=== PATIENT | female | born 1950 ===

== ENCOUNTER → 2020-04-28 14:04 | Outpatient (BNVA) | payer MEDICARE, SELFPAY | PROVIDERS: PCP Nurse Practitioner Family; Visit Provider Anesthesiology | DX: Z76.89 Persons encountering health services in other specified circumstances (principal) ==

== ENCOUNTER → 2020-09-22 14:45 | Outpatient (BNVA) | payer MEDICARE, SELFPAY | PROVIDERS: PCP General Practice; Visit Provider Nurse Practitioner Family | DX: M54.12 Radiculopathy, cervical region (principal); M79.18 Myalgia, other site; G89.4 Chronic pain syndrome; G90.523 Complex regional pain syndrome I of lower limb, bilateral; Z79.899 Other long term (current) drug therapy | CPT/HCPCS: 99212 ==

== ENCOUNTER → 2020-10-08 11:28 | Outpatient (BNVA) | payer MEDICARE, SELFPAY | PROVIDERS: PCP General Practice; Visit Provider Nurse Practitioner Family | DX: M54.12 Radiculopathy, cervical region (principal); M79.18 Myalgia, other site; G89.4 Chronic pain syndrome; G90.523 Complex regional pain syndrome I of lower limb, bilateral | CPT/HCPCS: 99212 ==

== ENCOUNTER 2020-10-08 14:01 | Emergency (ER) | payer MEDICARE, SELFPAY ==
[2020-10-08 14:29] VITALS: BP 231/96; PULSE 61; RESP 18; O2SAT 98; BMI 41.0
--- NOTE | 2020-10-08 16:21 | ED.GENADULT ---
HPI - General Adult General Chief complaint: General Medical Stated complaint: hbp Time Seen by Provider: 10/08/20 16:21 Source: patient Mode of arrival: ambulatory Limitations: no limitations History of Present Illness HPI narrative: Patient sent from orthopedic clinic for high blood pressure of 238/98 patient is on multiple medication for blood pressure lisinopril labetalol and nifedipine staying with her son for last 2 days and did not take her medication went to Pain Clinic and blood pressure was elevated patient otherwise asymptomatic no headache no chest pain no shortness of breath patient is feeling okay otherwise and patient will be getting her medication tonight Related Data Home Medications Medication Instructions Recorded Confirmed albuterol sulfate 90 mcg/actuation 2 puff INHALATION Q4H PRN 09/22/20 10/08/20 aerosol inhaler atorvastatin 20 mg tablet 20 mg PO DAILY 09/22/20 10/08/20 chlorthalidone 25 mg tablet 25 mg PO DAILY 09/22/20 10/08/20 cholecalciferol (vitamin D3) 50 50 mcg PO QAM 09/22/20 10/08/20 mcg (2,000 unit) tablet divalproex 250 mg tablet,extended 0 mg PO 09/22/20 10/08/20 release 24 hr fluticasone 250 mcg-salmeterol 50 1 ea INHALATION BID 09/22/20 10/08/20 mcg/dose blistr powdr for inhalation labetalol 200 mg tablet 200 mg PO BID 09/22/20 10/08/20 levothyroxine 125 mcg tablet 125 mcg PO DAILY 09/22/20 10/08/20 lisinopril 40 mg tablet 40 mg PO BEDTIME 09/22/20 10/08/20 montelukast 10 mg tablet 10 mg PO BEDTIME 09/22/20 10/08/20 nifedipine 90 mg tablet,extended 90 mg PO DAILY 09/22/20 10/08/20 release 24 hr oxycodone-acetaminophen 5 mg-325 1 tab PO TID PRN 09/22/20 10/08/20 mg tablet pregabalin 100 mg capsule 100 mg PO BID 09/22/20 10/08/20 Allergies Allergy/AdvReac Type Severity Reaction Status Date / Time aspirin [ASPIRIN] Allergy Intermediate HIVES Verified 10/08/20 11:37 Penicillins [PENICILLINS] Allergy Intermediate HIVES Verified 10/08/20 11:37 SEAFOOD Allergy Severe HIVES, Uncoded 03/18/20 15:15 THROAT CLOSES Review of Systems Review of Systems: Constitutional : No Weight loss, No Fever, No Chills ENT/Mouth : No sore throat, No Rhinorrhea Eyes: No Eye Pain, No Swelling Cardiovascular : No Chest Pain, no palpitations Respiratory : No Cough, No Sputum, no shortness of breath Gastrointestinal : no Nausea, No Vomiting, No Diarrhea, No abdominal Pain, no black stools Genitourinary : No Dysuria, No Urinary Frequency Musculoskeletal : No joint pain, No Myalgias, No Joint Swelling Skin : No Skin Lesions, No rash Neuro : No Weakness, No Numbness, No Dizziness, No Headache Psych : No Anxiety/Panic, No Depression Heme/Lymph: No Bruising, No Lymphadenopathy Endocrine : No Polyuria, No Polydipsia All other systems reviewed and are negative [facility] Past Medical History Medical History (Updated 10/08/20 @ 17:39 by Artur Myrick MD) Chronic pain syndrome Complex regional pain syndrome i of lower limb, bilateral Hypertension Neuropathic pain Sacroiliitis Social History Social History Alcohol intake: never Smoking Status: Never smoker Use of substances other than those prescribed or required for medical reasons: No Advance Directives: No Advance Directives Information Provided: Yes Physical Exam Vital Signs: Vital Signs: Last Vital Signs Temp 98.2 F 10/08/20 17:06 Pulse 55 10/08/20 17:32 Resp 12 10/08/20 17:32 BP 167/79 H 10/08/20 17:32 Pulse Ox 96 10/08/20 17:32 Body Mass Index 41.0 Appearance: Alert. Oriented X3. No acute distress. Eyes: Pupils equal, round and reactive to light. ENT: Pharynx normal. Neck: Normal inspection. Neck supple. CVS: Normal heart rate and rhythm. Pulses normal. Respiratory: No respiratory distress. Breath sounds normal. Abdomen: Soft and nontender. Bowel sounds are present, no mass palpable, no CVA tenderness Skin: Skin warm and dry. Normal skin color. Normal skin turgor. Extremities: No lower extremity edema. Neuro: Oriented X 3. No motor deficit. No sensory deficit. Medical Decision Making MDM Narrative Medical decision making narrative: Patient with hypertension missed her medication, blood pressure was elevated at pain clinic at this time 211/94 patient is symptomatic will give her evening dose of lisinopril and labetalol advised to follow up with PCP and continue to take her medications. Repeat blood pressure at time of discharge were 167/79 Lab Data Lab results reviewed: Yes I reviewed the patient's lab results. Result diagrams: 10/08/20 16:20 10/08/20 16:20 Labs: Lab Results 10/08/20 10/08/20 10/08/20 Range/Units 16:20 16:20 16:20 WBC 6.0 (4.8-10.8) X10*3/uL RBC 4.04 L (4.20-5.50) X10*6/uL Hgb 11.2 L (12.0-16.0) g/dl Hct 35.5 L (37-47) % MCV 87.9 (80-98) fL MCH 27.7 (27.0-33.0) pg MCHC 31.5 (31.0-35.0) g/dl RDW 13.1 (11.0-16.0) % Plt Count 244 (160-400) X10*3/uL MPV 9.9 (9.4-12.3) fL Immature Gran % (Auto) 0.2 (0.0-0.4) % Neut % (Auto) 48.8 (45-73) % Lymph % (Auto) 42.7 H (20-40) % [place] % (Auto) 6.1 (2-11) % Eos % (Auto) 2.0 (0-4) % Baso % (Auto) 0.2 (0-2) % Lymph # (Auto) 2.6 (1.2-4.9) X10*3/uL [place] # (Auto) 0.4 (0.1-1.2) X10*3/uL Eos # (Auto) 0.1 (0.0-0.4) X10*3/uL Baso # (Auto) 0.0 (0.0-0.2) X10*3/uL Abs Immat Gran (auto) 0.01 (0.00-0.03) X10*3/uL Absolute Neuts (auto) 3.0 (2.0-8.3) X10*3/uL Absolute Nucleated RBC 0.000 (0.0-0.012) X10*3/uL Nucleated RBC % (auto) 0.0 (0.0-0.2) /100WBC Hold Blue Top SEE NOTE Sodium 141 (135-145) mmol/L Potassium 4.4 (3.3-5.1) mmol/L Chloride 103 (96-108) mmol/L Carbon Dioxide 27 (22-29) mmol/L Anion Gap 15 (12-20) BUN 11 (9-16) mg/dL Creatinine 1.05 (0.5-1.4) mg/dL Estim Creat Clear Calc 50.1 Estimated GFR 52 Random Glucose 99 (60-115) mg/dL Calcium 8.8 (8.4-10.2) mg/dL Discharge Plan Discharge Clinical Impression: Hypertension Qualifiers: Hypertension type: essential hypertension Qualified Code(s): I10 - Essential (primary) hypertension Patient Disposition: Home, Self-Care Instructions: Chronic Hypertension (ED) Additional Instructions: Taking medication on time and check blood pressure and follow with PCP Normal blood pressure should be less than 140/90 Prescriptions: No Action pregabalin 100 mg capsule 100 mg PO BID RF: 0 divalproex 250 mg tablet extended release 24 hr 0 mg PO RF: 0 levothyroxine 125 mcg tablet 125 mcg PO DAILY RF: 0 nifedipine 90 mg tablet extended release 24hr 90 mg PO DAILY RF: 0 labetalol 200 mg tablet 200 mg PO BID RF: 0 atorvastatin 20 mg tablet 20 mg PO DAILY RF: 0 fluticasone propion-salmeterol 250-50 mcg/dose blister with device 1 ea inhalation BID RF: 0 oxycodone-acetaminophen 5-325 mg tablet 1 tab PO TID PRNRF: 0 cholecalciferol (vitamin D3) 50 mcg (2,000 unit) tablet 50 mcg PO QAM RF: 0 lisinopril 40 mg tablet 40 mg PO BEDTIME RF: 0 montelukast 10 mg tablet 10 mg PO BEDTIME RF: 0 chlorthalidone 25 mg tablet 25 mg PO DAILY RF: 0 albuterol sulfate 90 mcg/actuation HFA aerosol inhaler 2 puff inhalation Q4H PRNRF: 0
[2020-10-08 16:33] LABS: MANUAL DIFF FLAG NO
[2020-10-08 16:35] VITALS: BP 211/94; PULSE 65; RESP 16; TEMP 36.6; O2SAT 99
[2020-10-08 16:37] LABS: Basophils Percent Auto 0.2 % (0-2); Eosinophils Absolute Auto 0.1 X10*3/uL (0.0-0.4); Hematocrit 35.5 % (37-47); Hemoglobin 11.2 g/dl (12.0-16.0); Imm Gran Abs Auto 0.01 X10*3/uL (0.00-0.03); Imm Gran Pct Auto 0.2 % (0.0-0.4); Lymphocytes Absolute Auto 2.6 X10*3/uL (1.2-4.9); Lymphocytes Percent Auto 42.7 % (20-40); Mean Corpuscular HGB Conc 31.5 g/dl (31.0-35.0); Mean Corpuscular Hemoglobin 27.7 pg (27.0-33.0); Mean Corpuscular Volume 87.9 fL (80-98); Mean Platelet Volume 9.9 fL (9.4-12.3); Monocytes Absolute Auto 0.4 X10*3/uL (0.1-1.2); Monocytes Percent Auto 6.1 % (2-11); Neutrophils Percent Auto 48.8 % (45-73); Platelet Count 244 X10*3/uL (160-400); Red Blood Count 4.04 X10*6/uL (4.20-5.50); Red Cell Distribution Width 13.1 % (11.0-16.0)
[2020-10-08 16:59] LABS: Anion Gap 15 (12-20); Blood Urea Nitrogen 11 mg/dL (9-16); Calcium 8.8 mg/dL (8.4-10.2); Carbon Dioxide 27 mmol/L (22-29); Chloride 103 mmol/L (96-108); Creatinine Clr Calc Pharmacy 50.1; Estimated Glomerular Filt Rate 52; Glucose Random 99 mg/dL (60-115); Potassium 4.4 mmol/L (3.3-5.1); Sodium 141 mmol/L (135-145)
[2020-10-08 17:06] VITALS: BP 189/70; PULSE 58; RESP 14; TEMP 36.8; O2SAT 98
[2020-10-08 17:11] VITALS: BP 189/70; PULSE 58
[2020-10-08] MEDS: Labetalol HCL 200 MG TABLET PO (17:11)
[2020-10-08] MEDS: lisinopriL 40 MG TABLET PO (17:11)
[2020-10-08 17:32] VITALS: BP 167/79; PULSE 55; RESP 12; O2SAT 96
== END 2020-10-08 17:49 | disposition home or self-care (01) ==
PROVIDERS: Emergency Provider Internal Medicine; PCP General Practice
DX: I10 Essential (primary) hypertension (principal)
CPT/HCPCS: 36415; 80048; 85025; 99283; 99284

== ENCOUNTER 2020-10-20 12:32 | Outpatient (REF) | payer MEDICARE, SELFPAY ==
--- NOTE | ~2020-10-20 | MR_ITS ---
EXAMINATION: MR CERVICAL SPINE WITHOUT CONTRAST CLINICAL INFORMATION: Cervical radiculopathy. COMPARISON: None available. TECHNIQUE: MRI of the cervical spine was obtained using routine sequences without contrast. FINDINGS: Cervical Spine: Normal anatomic alignment. Advanced degenerative disc disease at C4-C5. Moderate degenerative disc disease at C2-C3, C3-C4, and C5-C6. Associated mixed Modic type discogenic endplate changes including mild Modic type I discogenic edema at C4-C5. No additional suspicious marrow edema. The vertebral body heights are well-maintained. There is mildly increased T2 signal within the spinal cord at the level of C4-C5. No additional spinal cord signal abnormalities. Limited evaluation of the soft tissues of the neck without demonstrated abnormalities. The flow voids of the major cervical vessels are maintained. Normal appearance of the cervicomedullary junction and visualized posterior fossa. SPINAL LEVELS: C2-C3: Shallow disc-osteophyte complex. There is no uncovertebral joint arthropathy. There is no facet joint arthropathy. There is no neural foraminal stenosis. There is no spinal canal stenosis. C3-C4: Mild to moderate disc-osteophyte complex. There is mild bilateral uncovertebral joint arthropathy. There is mild bilateral facet joint arthropathy. There is mild to moderate bilateral neural foraminal stenosis. There is mild to moderate spinal canal stenosis. C4-C5: Prominent disc-osteophyte complex with superimposed central disc protrusion. There is moderate bilateral uncovertebral joint arthropathy. There is moderate bilateral facet joint arthropathy. There is severe bilateral neural foraminal stenosis. There is severe spinal canal stenosis. C5-C6: Moderate disc-osteophyte complex with superimposed central disc protrusion. There is mild bilateral uncovertebral joint arthropathy. There is moderate left and mild right facet joint arthropathy. There is mild right and no left neural foraminal stenosis. There is mild to moderate spinal canal stenosis. C6-C7: Normal annular contour. There is mild bilateral uncovertebral joint arthropathy. There is mild bilateral facet joint arthropathy. There is mild right and no left neural foraminal stenosis. There is no spinal canal stenosis. C7-T1: Normal annular contour. There is no uncovertebral joint arthropathy. There is no facet joint arthropathy. There is no neural foraminal stenosis. There is no spinal canal stenosis. MR/MR cervical spine wo con IMPRESSION: Moderate multilevel degenerative spondyloarthropathy of the cervical spine as described in detail above. Most notably, there is severe spinal canal stenosis at C4-C5. There appears to be a degree of myelomalacia of the spinal cord at this level. Mild to moderate spinal canal stenoses at C3-C4 and C5-C6. There are also moderate to severe neural foraminal stenoses at C4-C5 and C5-C6.
== END 2020-10-20 12:33 | disposition home or self-care (01) ==
LOC: HO.MRI 12:32
PROVIDERS: Visit Provider Anesthesiology
DX: M54.12 Radiculopathy, cervical region (principal); M54.2 Cervicalgia
CPT/HCPCS: 72141

== ENCOUNTER 2020-10-26 16:06 | Outpatient (REF) | payer MEDICARE, SELFPAY ==
--- NOTE | ~2020-10-26 | MM_ITS ---
EXAMINATION: MM SCREENING DIGITAL BREAST TOMOSYNTHESIS, BILATERAL CLINICAL INFORMATION: Screening. Asymptomatic. The lifetime risk of breast cancer based on the Tyrer-Cuzick Model is 1.9%. COMPARISON: Mammography: February 22, 2017 and November 10, 2011 TECHNIQUE: Digital breast tomosynthesis is performed in both the craniocaudal and mediolateral oblique views along with computer-aided detection (CAD). Synthesized 2D images are generated from the tomosynthesis. FINDINGS: The breasts are almost entirely fatty (ACR BI-RADS breast composition Category a). There are no significant masses, abnormal calcifications, or other abnormalities. MM/MM tomosynthesis screening BI IMPRESSION: There are no significant changes from prior study. ASSESSMENT: BI-RADS 1: Negative RECOMMENDATION: Routine annual mammography screening. This patient's information was entered into a reminder system with a target due date for their next mammogram.
== END 2020-10-26 16:07 | disposition home or self-care (01) ==
LOC: HO.MAMMO 16:06
PROVIDERS: PCP General Practice; Visit Provider General Practice
DX: M54.12 Radiculopathy, cervical region (principal); G89.4 Chronic pain syndrome; M79.18 Myalgia, other site; G90.523 Complex regional pain syndrome I of lower limb, bilateral; Z79.899 Other long term (current) drug therapy; Z12.31 Encounter for screening mammogram for malignant neoplasm of breast
CPT/HCPCS: 20553; 77063; 77067; 99212

== ENCOUNTER → 2021-01-14 11:10 | Outpatient (BNVA) | payer MEDICARE, SELFPAY | PROVIDERS: PCP General Practice; Visit Provider Internal Medicine | DX: M46.1 Sacroiliitis, not elsewhere classified (principal) | CPT/HCPCS: 99212 ==

== ENCOUNTER 2021-02-09 06:32 | Outpatient (REF) | payer MEDICARE, SELFPAY ==
--- NOTE | ~2021-02-09 | FL_ITS ---
EXAMINATION: XR FLUOROSCOPY WITH IMAGES CLINICAL INFORMATION: Right sacroiliitis COMPARISON: MRI lumbar spine 05/20/2019 TECHNIQUE: Fluoroscopy performed by Dr. Cricket Levy. Fluoroscopy time: 0.4 minutes DAP: 2.49 Gycm2 Images: 2 FINDINGS: There is spinal needle overlying the lower right sacroiliac joints. Some trace intra-articular contrast is suggested along with some trabecular uptake. FL/FL guidance in treatment room IMPRESSION: Fluoroscopy for pain management procedure.
== END 2021-02-09 06:33 | disposition home or self-care (01) ==
LOC: HO.RADIR 06:32
PROVIDERS: Visit Provider Internal Medicine
DX: M46.1 Sacroiliitis, not elsewhere classified (principal)
CPT/HCPCS: 27096; J1040; Q9967

== ENCOUNTER → 2021-03-18 11:14 | Outpatient (BNVA) | payer MEDICARE, SELFPAY | PROVIDERS: PCP General Practice; Visit Provider Internal Medicine | DX: M46.1 Sacroiliitis, not elsewhere classified (principal) | CPT/HCPCS: 99212 ==

== ENCOUNTER 2021-03-30 05:50 | Outpatient (REF) | payer MEDICARE, SELFPAY ==
--- NOTE | ~2021-03-30 | FL_ITS ---
EXAMINATION: XR FLUOROSCOPY WITH IMAGES CLINICAL INFORMATION: Sacroiliitis COMPARISON: None. TECHNIQUE: Fluoroscopy performed by rEin jones. Fluoroscopy time: 0.6 minutes DAP: 5.56 Gycm2 Images: 2 FINDINGS: Under fluoroscopy Been positioned along inferior SI joint. The visualized sacrum and the left SI joint appears unremarkable. No bony abnormality. The soft tissues are normal. FL/FL guidance in treatment room IMPRESSION: Fluoroscopy was provided to referring physician for left SI joint injection.
== END 2021-03-30 05:51 | disposition home or self-care (01) ==
LOC: HO.RADIR 05:50
PROVIDERS: Visit Provider Internal Medicine
DX: M46.1 Sacroiliitis, not elsewhere classified (principal)
CPT/HCPCS: 27096; J1040; Q9967

== ENCOUNTER → 2021-04-20 08:17 | Outpatient (BNVA) | payer MEDICARE, SELFPAY | PROVIDERS: PCP General Practice; Visit Provider Nurse Practitioner Family | DX: M46.1 Sacroiliitis, not elsewhere classified (principal) | CPT/HCPCS: 99212 ==

== ENCOUNTER 2021-05-27 12:24 | Outpatient (REF) | payer MEDICARE, SELFPAY ==
[2021-05-27 13:18] LABS: Anion Gap 14 (12-20); Blood Urea Nitrogen 11 mg/dL (9-16); Carbon Dioxide 27 mmol/L (22-29); Chloride 102 mmol/L (96-108); Estimated Glomerular Filt Rate > 60; Iron 79 mcg/dL (30-160); Percent Iron Saturation 24 % (15-50); Sodium 139 mmol/L (135-145); Total Iron Binding Capacity 323 mcg/dL (228-428); Unsaturated Iron Binding 244 ug/dL
[2021-05-27 13:36] LABS: TSH reflex Free T4 4.34 uIU/mL (0.32-4.0); Vitamin D 25-OH Total 20.7 ng/mL (>30)
[2021-05-27 13:45] LABS: Microalbum/Creatinine Ratio Ur 6.2 ug/mg cr
[2021-05-27 13:56] LABS: Appearance Urine HAZY; Color Urine YELLOW; Glucose Urine UA NEG (NEG); Leukocyte Esterase Urine NEG (NEG); Nitrite Urine NEG (NEG); Specific Gravity - Urine >= 1.030 (1.005-1.025); Urine Blood NEG (NEG); Urine Ketones NEG (NEG); Urine Protein NEG (NEG-TRACE)
[2021-05-27 14:11] LABS: Bacteria Urine TRACE /LPF; RBC Urine 0-2 /HPF (0); Squamous Epithelial Cell Urine 2+ /LPF; WBC Urine 0-2 /HPF (0-4)
[2021-05-27 14:11] LABS: Free T4 (Free Thyroxine) 1.03 ng/dL (0.71-1.85)
[2021-05-30 12:26] LABS: Renin 0.57 ng/mL/h (0.25-5.82)
[2021-05-30 14:00] LABS: Calcium (PTHI) 9.1 mg/dL (8.6-10.4); PTHI 99 pg/mL (14-64)
[2021-06-01 18:36] LABS: Metanephrine, Free 25 pg/mL (<=57); Normetanephrines, Free 129 pg/mL (<=148); Total Metanephrine, Free 154 pg/mL (<=205)
== END 2021-05-27 12:25 | disposition home or self-care (01) ==
LOC: HO.LAB 12:24
PROVIDERS: PCP General Practice; Visit Provider Internal Medicine Nephrology
DX: N18.2 Chronic kidney disease, stage 2 (mild) (principal); N08 Glomerular disorders in diseases classified elsewhere
CPT/HCPCS: 36415; 80051; 81001; 82043; 82088; 82306; 82310; 82565; 83540; 83835; 83970; 84244; 84439; 84443; 84520

== ENCOUNTER → 2021-06-20 13:49 | Outpatient (BNVA) | payer MEDICARE, SELFPAY | PROVIDERS: PCP General Practice; Visit Provider Internal Medicine | DX: M46.1 Sacroiliitis, not elsewhere classified (principal); Z79.82 Long term (current) use of aspirin | CPT/HCPCS: 99212 ==

== ENCOUNTER 2021-08-10 06:10 | Outpatient (REF) | payer MEDICARE, SELFPAY ==
--- NOTE | ~2021-08-10 | FL_ITS ---
EXAMINATION: XR FLUOROSCOPY WITH IMAGES CLINICAL INFORMATION: M46.1 - Sacroiliitis, not elsewhere classified COMPARISON: Fluoroscopic spot views 03/30/2021 TECHNIQUE: Fluoroscopy performed by Dr. Cricket Levy. Fluoroscopy time: 0.5 minutes DAP: 3.75 Gycm2 Images: 4 FINDINGS: Spinal needles overlies the bilateral lower SI joints. FL/FL guidance in treatment room IMPRESSION: Fluoroscopy for pain management procedure.
== END 2021-08-10 06:11 | disposition home or self-care (01) ==
LOC: HO.RADIR 06:10
PROVIDERS: Visit Provider Internal Medicine
DX: M46.1 Sacroiliitis, not elsewhere classified (principal)
CPT/HCPCS: 27096; J1040; Q9967

== ENCOUNTER → 2021-09-09 08:10 | Outpatient (BNVA) | payer MEDICARE, SELFPAY | PROVIDERS: PCP General Practice; Visit Provider Nurse Practitioner Family | DX: M46.1 Sacroiliitis, not elsewhere classified (principal) | CPT/HCPCS: 99212 ==

== ENCOUNTER → 2022-03-08 09:18 | Outpatient (BNVA) | payer MEDICARE, SELFPAY | PROVIDERS: PCP General Practice; Referring Provider General Practice; Visit Provider Internal Medicine | DX: I70.1 Atherosclerosis of renal artery (principal); I25.10 Atherosclerotic heart disease of native coronary artery without angina pectoris; I10 Essential (primary) hypertension | CPT/HCPCS: 93005; 99202 ==

== ENCOUNTER → 2022-04-18 08:40 | Outpatient (REF) | payer MEDICARE, SELFPAY ==
--- NOTE | 2022-04-18 08:43 | CA_ITS ---
Transthoracic Echocardiogram Patient (Last, First, Middle): Tamika Bhandari, Gender: Female Date of : 1950 Age: 71 Procedure Date: 04/18/2022 Procedure Type: Transthoracic Echocardiogram Location: OP Height: 149.86 cm Weight: 87.54 kg BSA: 1.82 m2 Heart Rate: bpm BP: 200 / 100 mmHg [employer] Professor: TO Referring MD: Shaw Sam MD Symptoms: I10 - Essential (primary) hypertension Study Quality: Fair ECG Rhythm: Sinus Conclusions: - The left ventricular systolic function is normal. The calculated ejection fraction is 63% by biplane method. - There is moderately increased left ventricular wall thickness. - No obvious valvular pathology seen on this study. Findings Left Ventricle Normal left ventricular cavity size. There is moderately increased left ventricular wall thickness. The left ventricular systolic function is normal. The calculated ejection fraction is 63% by biplane method. There is no evidence of regional wall motion abnormalities. Diastolic function is normal for age. Right Ventricle Normal right ventricular cavity size and systolic function. Atria Both atria are normal in size. Aortic Valve There is a normal trileaflet aortic valve. There is no aortic valve stenosis. There is no aortic valve regurgitation. Mitral Valve The mitral valve appears normal. There is no mitral valve regurgitation. There is no mitral valve stenosis. Pulmonic Valve The pulmonic valve is likely normal. Tricuspid Valve There is no tricuspid valve regurgitation. Tricuspid regurgitation envelope is inadequate for calculation of right ventricular systolic pressure. Great Vessels The aortic annulus, sinuses of valsalva, and asc aorta are normal in size. Small plaque is seen in the sino tubular ridge. Venous The inferior vena cava is normal in size and collapses greater than 50% with inspiration. Pericardium/Pleural There is no evidence of pericardial effusion. Prior Study Comparison Changes noted compared to prior study dated: 08/27/2002. LVH present. Recommendations, Care & Conclusions No obvious valvular pathology seen on this study. Measurements 2D Linear Measurements IVSd: 1.37 0.6-0.9/0.6-1.0 cm LVIDd: 4.58 3.9-5.3/4.2-5.9 cm LVIDd Index: 2.52 2.4-3.2/2.2-3.1 cm/m2 LVIDs: 2.83 2.0-3.6 cm LVPWd: 1.21 0.7-1.1 cm LA Diam: 3.80 2.7-3.8/3.0-4.0 cm LAIDs Index: 2.09 1.5-2.3 cm/m2 LV Mass: 281.83 67-162/88-224 g LV Mass Index: 154.85 43-95/49-115 g/m2 LVOT Diam: 2.10 3.0+(-)1.3 cm 2D Systolic Function EF 4C: 65.80 >55% EF 2C: 57.40 >55% EF BiP: 63.00 >55% Mitral Valve MV Pk E: 0.77 MV PK A: 0.82 MV Decel Time: 224.00 E/A: 0.90 E'Lateral: 5.33 E'Medial: 4.57 E/E' Med: 16.80 E/E' Lat: 14.40 PHT: 66.00 MVA PHT: 3.33 Decel Colbert: 3.42 Aortic Valve AoV Pk Tao: 1.39 AoV Mn Tao: 0.90 AoV VTI: 0.33 AoV Pk Grad: 8.00 Aov Mn Grad: 4.00 LEISA Cont.VTI: 2.37 LVOT LVOT Pk Tao: 1.01 LVOT Mn Tao: 0.60 LVOT VTI: 0.22 LVOT Pk Grad: 4.00 LVOT Mn Grad: 2.00 LVOT Diam: 2.10 LVOT Area: 3.46 Diastolic Function MV Pk E: 0.77 MV Pk A: 0.82 E/A: 0.90 E'Medial: 4.57 E/E' Med: 16.80 E' Laterial: 5.33 E/E' Lat: 14.40 Right Ventricle TAPSE (mm): 27.80 TVS' Tao: 14.40 Great Vessels Aorta Sinus of Valsalva: 2.85 2.0-3.[address] [place]: 2.16 1.7-3.4 cm Ao Asc: 3.10 2.1-3.4 cm Updated in Other Vendor System with Status of Final Shaw Sam MD electronically signed on 04/18/2022 12:43:30 PM with status of Final
== END ==
LOC: HO.CARD 08:40
PROVIDERS: Visit Provider Internal Medicine
DX: I10 Essential (primary) hypertension (principal); I25.10 Atherosclerotic heart disease of native coronary artery without angina pectoris
CPT/HCPCS: 93306

== ENCOUNTER 2023-04-02 12:54 | Outpatient (AMB) | payer MEDICARE, SELFPAY ==
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
[2023-04-02 13:13] VITALS: BP 255/126; PULSE 109; O2SAT 97; BMI 40.5
[2023-04-02 13:14] VITALS: BP 255/134; PULSE 86; O2SAT 98
[2023-04-02 13:26] VITALS: BP 220/100
== END 2023-04-02 14:02 | disposition home or self-care (01) ==
PROVIDERS: PCP General Practice; Visit Provider Nurse Practitioner Family
DX: M96.1 Postlaminectomy syndrome, not elsewhere classified (principal); M48.061 Spinal stenosis, lumbar region without neurogenic claudication; M54.16 Radiculopathy, lumbar region; M54.12 Radiculopathy, cervical region; Z91.81 History of falling
CPT/HCPCS: 99214

== ENCOUNTER → 2023-04-02 12:54 | Outpatient (BNVA) | payer MEDICARE, SELFPAY | PROVIDERS: PCP General Practice; Visit Provider Nurse Practitioner Family | DX: M54.12 Radiculopathy, cervical region (principal); M54.16 Radiculopathy, lumbar region; M48.061 Spinal stenosis, lumbar region without neurogenic claudication; M96.1 Postlaminectomy syndrome, not elsewhere classified; Z91.81 History of falling | CPT/HCPCS: 99212 ==

== ENCOUNTER 2023-04-02 14:06 | Emergency (ER) | payer MEDICARE, SELFPAY ==
[2023-04-02 15:10] VITALS: BP 192/93; PULSE 77; RESP 18; TEMP 35.9; O2SAT 98; BMI 41.0
--- NOTE | 2023-04-02 15:12 | ED_ITS ---
HPI - General Adult General Chief complaint: General Medical Stated complaint: HBP Related Data Allergies Allergy/AdvReac Type Severity Reaction Status Date / Time aspirin [ASPIRIN] Allergy Intermediate HIVES Verified 04/02/23 13:26 Penicillins [PENICILLINS] Allergy Intermediate HIVES Verified 04/02/23 13:26 SEAFOOD Allergy Severe HIVES, Uncoded 03/08/22 09:27 THROAT CLOSES PMFSH Past Medical History Medical History (Updated 04/13/23 @ 15:54 by SHAHEED Carmona) Hypertension Chronic pain syndrome Sacroiliitis Neuropathic pain Complex regional pain syndrome i of lower limb, bilateral Surgical History (Updated 03/08/22 @ 09:28 by SAUMYA Raphael) No pertinent past surgical history Family History Family History (Updated 03/08/22 @ 09:28 by SAUMYA Raphael) Father Heart disease Mother Heart disease Social History Social History (Updated 03/08/22 @ 09:28 by SAUMYA Raphael) Alcohol intake: never Patient Tobacco Use Status: Never used Tobacco Physical Exam ED Vital Signs: Vital Signs - 24 hr 04/02/23 15:10 Temperature 96.7 F L Pulse Rate 77 Respiratory Rate 18 Blood Pressure 192/93 H Pulse Oximetry 98 Oxygen Delivery Method Room Air BMI result Body Mass Index 41.0 Course Course Course Narrative: This is an RME: Additional HPI, ROS, PE not included below will be deferred to primary provider. This is a 26-ulan-jcb-female, with a hx of hypertension noncompliant on medications, chronic back pain, presenting to the emergency department with a complaint of high blood pressure. She was at her pain management clinic today and was told to come to the ER as her blood pressure was elevated, unsure of what the reading was. She staets that she has not taken her blood pressure med ications since October 2022. She denies any vision changes, chest pain, shortness of breath. Plan: labs, further Er evaluation needed pt eloped prior to being fully evaluated by primary provider. Discharge Plan Discharge Clinical Impression: Uncontrolled hypertension Patient Disposition: Left W/O Completing Treatment Discharge Date/Time: 04/02/23 19:37
== END 2023-04-02 19:37 | disposition left against medical advice (07) ==
PROVIDERS: Emergency Provider Emergency Medicine; PCP General Practice
DX: I10 Essential (primary) hypertension (principal)
CPT/HCPCS: 99281

== ENCOUNTER 2023-04-03 16:01 | Outpatient (REF) | payer MEDICARE, SELFPAY ==
[2023-04-03 18:10] LABS: Anion Gap 15 (12-20); Blood Urea Nitrogen 13 mg/dL (9-16); Calcium 9.5 mg/dL (8.4-10.2); Carbon Dioxide 27 mmol/L (22-29); Chloride 102 mmol/L (96-108); Estimated Glomerular Filt Rate 59; Glucose Random 93 mg/dL (60-115); Potassium 3.8 mmol/L (3.3-5.1); Sodium 140 mmol/L (135-145)
== END 2023-04-03 16:02 | disposition home or self-care (01) ==
LOC: HO.HHCL 16:01
PROVIDERS: Visit Provider Internal Medicine Geriatric Medicine
DX: I10 Essential (primary) hypertension (principal)
CPT/HCPCS: 36415; 80048

== ENCOUNTER 2023-05-10 13:34 | Outpatient (REF) | payer MEDICARE, SELFPAY ==
[2023-05-10 15:38] LABS: Anion Gap 13 (12-20); Blood Urea Nitrogen 11 mg/dL (9-16); Calcium 9.6 mg/dL (8.4-10.2); Carbon Dioxide 29 mmol/L (22-29); Chloride 103 mmol/L (96-108); Estimated Glomerular Filt Rate > 60; Glucose Random 86 mg/dL (60-115); Potassium 3.6 mmol/L (3.3-5.1); Sodium 141 mmol/L (135-145)
== END 2023-05-10 13:35 | disposition home or self-care (01) ==
LOC: HO.LAB 13:34
PROVIDERS: PCP General Practice; Visit Provider Nurse Practitioner
DX: I10 Essential (primary) hypertension (principal); R00.0 Tachycardia, unspecified
CPT/HCPCS: 36415; 80048; 93005; 99212

== ENCOUNTER 2023-05-10 13:34 | Outpatient (AMB) | payer MEDICARE, SELFPAY ==
--- NOTE | 2023-05-10 13:43 | MHC.OFFVIS ---
Intake Vital Signs 05/10/23 13:44 05/10/23 14:16 Height 4 ft 11 in Weight 201 lb 15.095 oz BMI 40.8 BP 178/98 H 174/92 H Blood Pressure Location Lt brachial Lt brachial Position Sitting Sitting Pulse 88 Pulse Source Auscultation Intake Visit Reasons: overdue follow up/ uncontrolled HTN [employer] Required: No Allergies aspirin [ASPIRIN] Allergy (Intermediate, Verified 05/10/23 13:46) HIVES Penicillins [PENICILLINS] Allergy (Intermediate, Verified 05/10/23 13:46) HIVES SEAFOOD Allergy (Severe, Uncoded 03/08/22 09:27) HIVES, THROAT CLOSES Medication List - Last Reconciled 05/10/23 by Katia Aragon NP atorvastatin (Lipitor) 40 mg PO QHS divalproex (Depakote) 250 mg PO BID hydralazine 25 mg PO TID levothyroxine 125 mcg PO DAILY lisinopril 40 mg PO DAILY nifedipine ER 30 mg PO DAILY HPI HPI Comments History of Present Illness Details 72-year-old female presents for follow-up after being in the emergency department for uncontrolled HTN. She last seen Dr. Sam back in 03/2022. She reported to the ED that she had a high blood pressure but wasn't able to give the reading but her blood pressure in the ED was 192/93. She told the ED she has not taken any HTN medications since october 2022. She left without being treatment. She states her son helps her with her medications but she is unsure of them. Called pharmacy to verify medications. She said she did not take any medications today because she thought she was going to get a stress test. She denies any shortness of breath, chest pain, swelling,vision changes, palpitations, or salt intake. Blood pressures were checked by me. Patient asked me to discuss with her son Jay about todays appointment - He reports she does eat a lot of processed foods with high salt intake and he has been helping her with her medications now but he left the house early so it was up to patient to take medications. Jay reports that she will not give up the salty foods. [facility] Medical History (Updated 05/10/23 @ 14:25 by Katia Aragon NP) Hypertension Chronic pain syndrome Sacroiliitis Neuropathic pain Complex regional pain syndrome i of lower limb, bilateral Surgical History (Updated 03/08/22 @ 09:28 by SAUMYA Raphael) No pertinent past surgical history Family History (Updated 03/08/22 @ 09:28 by SAUMYA Raphael) Father Heart disease Mother Heart disease Social History (Updated 03/08/22 @ 09:28 by SAUMYA Raphael) Alcohol intake: never Patient Tobacco Use Status: Never used Tobacco Review of Systems Const Denies chills, Denies fatigue, Denies fever(s), Denies frequent falls, Denies weakness, Denies weight gain and Denies weight loss Card Denies chest pain, Denies chest pain at rest, Denies chest pain with activity, Denies rapid heart rate, Denies pedal edema, Denies edema, Denies leg edema, Denies lightheadedness, Denies palpitations, Denies dyspnea, Denies dyspnea on exertion and Denies orthopnea Resp Denies cough, Denies dyspnea and Denies dyspnea on exertion GI Denies hematochezia and Denies change in stool character Musc Denies abnormal gait, Denies limited range of motion, Denies muscle cramps, Denies muscle weakness, Denies numbness, Denies radiating pain into limb, Denies stiffness and Denies tingling Neuro Denies abnormal gait, Denies frequent falls, Denies numbness, Denies tingling and Denies weakness Endo Denies fatigue and Denies palpitations Physical Exam Vital Signs: BMI result Body Mass Index 40.8 Const General: healthy appearing and no acute distress Orientation/consciousness: patient oriented x3 HEENT Head: Yes normal to inspection Eyes General: appearance normal, both eyes and all related structures Neck Neck: Yes normal visual inspection Chest Chest palpation & inspection: normal inspection of the chest Resp Effort & Inspection: normal respiratory effort Auscultation: clear to auscultation bilaterally Cardio Jugular venous distension: no JVD Palpation: normal PMI Rate: regular rate Rhythm: regular rhythm Heart sounds: S1 normal heart sound present, S2 normal heart sound present, no click, no gallops, no murmurs and no rubs GI Inspection: Yes normal to inspection Palpation (GI): Soft to palpation Skin General skin exam: no rashes or lesions noted Neuro General: patient oriented x3 Extrem General: Yes normal to inspection Psych Appearance: grossly normal Office Procedures EKG Details: EKG today Sinus Tachycardia rate 101 bpm. QTc 433ms. No significant changes from 03/2022 EKG. [id number], Complete Assessment & Plan Assessment & Plan (1) Uncontrolled hypertension: Code(s): I10 - Essential (primary) hypertension Plan Discussed in great detail about the importance of blood pressure control and taking her blood pressure medications daily and salt avoidance. There is a history of compliance issues. Discussed the risks associated with uncontrolled blood pressures. Discussed about lifestyle changes and the importance of these changes - low salt, taking medications daily, ambulation, weight loss. Dustin Thompson is going to inquire about med-packs with the pharmacy. Plan for stress test and ultrasound of the heart to assess function and perfusion. Monitor blood pressures daily Will request lab work from PCP. Blood pressure check in 2 weeks and 3 month follow-up with Dr. Sam. Continue medications as currently prescribed. Orders: Orders CA echo transthoracic complete Today I10 - Essential (primary) hypertension CA lexiscan stress w luba Today I10 - Essential (primary) hypertension Basic Metabolic Panel Today I10 - Essential (primary) hypertension NM cardiolite stress test Today I10 - Essential (primary) hypertension Coding Level of Care Code Est Pt Level 4 (44124) Diagnoses Uncontrolled hypertension I10 CPT Codes EKG - CPT: 07899-[id number], Complete ([id number])
[2023-05-10 13:44] VITALS: BP 178/98; BMI 40.8
[2023-05-10 14:16] VITALS: BP 174/92; PULSE 88
== END 2023-05-10 14:35 | disposition home or self-care (01) ==
PROVIDERS: PCP General Practice; Visit Provider Nurse Practitioner
DX: I10 Essential (primary) hypertension (principal)
CPT/HCPCS: 93010; 99214

== ENCOUNTER 2023-06-19 11:47 | Outpatient (REF) | payer MEDICARE, SELFPAY ==
[2023-06-19 14:08] LABS: Anion Gap 14 (12-20); Blood Urea Nitrogen 10 mg/dL (9-16); Calcium 9.4 mg/dL (8.4-10.2); Carbon Dioxide 28 mmol/L (22-29); Chloride 104 mmol/L (96-108); Estimated Glomerular Filt Rate > 60; Glucose Random 90 mg/dL (60-115); Potassium 4.3 mmol/L (3.3-5.1); Sodium 142 mmol/L (135-145)
== END 2023-06-19 11:48 | disposition home or self-care (01) ==
LOC: HO.HHCL 11:47
PROVIDERS: Visit Provider Internal Medicine
DX: E87.6 Hypokalemia (principal); I10 Essential (primary) hypertension
CPT/HCPCS: 36415; 80048

== ENCOUNTER 2023-06-19 16:16 | Outpatient (REF) | payer MEDICARE, SELFPAY ==
--- NOTE | ~2023-06-19 | MR_ITS ---
EXAMINATION: MR CERVICAL SPINE WITHOUT CONTRAST CLINICAL INFORMATION: Radiculopathy. Spinal stenosis. Neck and back pain. COMPARISON: MRI dated 10/20/2020. TECHNIQUE: Multiplanar, multisequential imaging of the cervical spine was performed without contrast. FINDINGS: VERTEBRAL BODIES AND PARASPINAL SOFT TISSUES: The patient is status post previous anterior cervical discectomy and fusion with a solid arthrodesis demonstrated at the C4-C5 level. No compression fractures are seen. There is a stable mild anterolisthesis at the C7-T1 level. The paraspinal soft tissues are normal. The vertebral artery flow-voids are maintained. The imaged lung apices are clear. CERVICOMEDULLARY JUNCTION AND VISUALIZED POSTERIOR FOSSA: The craniovertebral junction and imaged portions of the brain parenchyma appear normal. There is chronic myelomalacia within the cord at the C4-C5 level. No syrinx is seen. SPINAL LEVELS: C2-C3: Very mild disc bulge. No central canal stenosis or foraminal narrowing. C3-C4: Broad-based posterior disc bulge again noted with thickening of the ligamentum flavum. Worsened moderate central canal stenosis with mild cord distortion. Mild right foraminal narrowing. C4-C5: Post fusion changes with osseous ridging and thickening of the ligamentum flavum resulting in significant central canal stenosis and moderate cord distortion with chronic myelomalacia. Severe bilateral foraminal narrowing due to osseous spurring. C5-C6: Broad-based central disc protrusion with posterior ligamentous thickening and a broad-based disc bulge resulting in moderate central canal stenosis, worsened since the prior study. Mild cord distortion without intramedullary signal change. Moderate right foraminal narrowing and milder left foraminal narrowing. C6-C7: Very small right paracentral disc protrusion. No central canal stenosis or foraminal narrowing. C7-T1: Mild anterolisthesis and facet arthropathy without central canal stenosis or foraminal encroachment. MR/MR cervical spine wo con IMPRESSION: 1. Status post anterior cervical discectomy and fusion with a solid arthrodesis at the C4-C5 level. Severe central canal stenosis and foraminal narrowing with chronic myelomalacia at this level. 2. Worsened moderate central canal stenosis at the C3-C4 level with mild cord distortion. No intramedullary signal change. 3. Progressed moderate central canal stenosis at the C5-C6 level with a broad-based central disc protrusion and posterior ligamentous thickening. Moderate right foraminal narrowing.
--- NOTE | ~2023-06-19 | MR_ITS ---
EXAMINATION: MR LUMBAR SPINE WITHOUT AND WITH CONTRAST CLINICAL INFORMATION: Lumbar spine, spinal stenosis, lumbar radiculopathy, postlaminectomy syndrome COMPARISON: MRI lumbar spine on 05/20/2019 TECHNIQUE: MRI of the lumbar spine was obtained using routine sequences with and without contrast. Intravenous contrast: Magnevist 9 mL FINDINGS: The visualized lumbar vertebrae are intact with normal alignment. Left posterior lateral L4-L5 junction level subcutaneous metallic device is seen with metallic wire passing along midline lumbar subcutaneous tissue to enter the lower thoracic spinal canal at T12 level. Evaluation of the intervertebral discs show: T12/L1: Intervertebral disc height is mildly decreased, with mild loss of T2 signal. Mild posterior disc protrusion is seen. Bilateral T12/L1 neuroforamina are patent. Bilateral apophyseal joints are intact with normal alignment. L-1/L-2: Intervertebral disc height is normal, with mild loss of T2 signal. No focal disc herniation is seen. Bilateral ligamentum flavum hypertrophy is present. Bilateral L1-L2 neuroforamina are patent. Bilateral apophyseal joints are intact with normal alignment. Bilateral apophyseal joints show loss of joint space, sclerosis, facet hypertrophy and osteophytosis. L2/L3: Intervertebral disc height is normal, with normal T2 signal. No focal disc herniation is seen. There is mild spinal stenosis due to impingement by hypertrophic ligamentum flavum. Bilateral L2-L3 neuroforamina are patent. Bilateral apophyseal joints are intact with normal alignment. Bilateral apophyseal joints show loss of joint space, sclerosis, facet hypertrophy and osteophytosis. L3/L4: Intervertebral disc height is moderately decreased, with moderate loss of T2 signal. Mild posterior and bilateral foraminal disc protrusion is seen. There is marked spinal stenosis due to additional impingement by hypertrophic ligamentum flavum. Bilateral L3-L4 neuroforamina are mildly stenosed. Bilateral apophyseal joints are intact with normal alignment. Bilateral apophyseal joints show loss of joint space, sclerosis, facet hypertrophy and osteophytosis. L4/L5: Intervertebral disc height is normal, with moderate loss of T2 signal. Moderate posterior and bilateral foraminal disc protrusion is seen. There is posterior decompression with resection of bilateral L5 laminae and spinous process. Bilateral L4-L5 neuroforamina are moderately stenosed. Bilateral apophyseal joints are intact with normal alignment. Bilateral apophyseal joints show loss of joint space, sclerosis, facet hypertrophy and osteophytosis. L5/S1: Intervertebral disc height is mildly decreased, with moderate loss of T2 signal. Mild posterior and bilateral foraminal disc protrusion is seen. There are resulting asymmetric mild right and moderate left L5-S1 neuroforamina stenosis. Bilateral L5 laminectomy defects and resection of L5 spinous process are seen. Bilateral apophyseal joints are intact with normal alignment. Bilateral apophyseal joints show loss of joint space, sclerosis, facet hypertrophy and osteophytosis. Conus medullaris is seen normally at L1 level. Post contrast images show no abnormal enhancing lumbar spine bone lesion. No intra spinal canalicular enhancing soft tissue mass lesion can be seen. Right posterior lateral mid renal cortical exophytic T2 hyperintense simple cyst is seen, for which no follow up imaging is recommended. MR/MR lumbar spine wo/w con IMPRESSION: 1. Unchanged L3-L4 level marked spinal stenosis due to posterior disc protrusion and additional impingement by hypertrophic ligamentum flavum. Mild bilateral L3-L4 neuroforamina stenosis. 2. Unchanged L4-L5 level posterior and bilateral foraminal disc protrusion is seen. Bilateral L4-L5 neuroforamina are moderately stenosed. 3. Unchanged L5-S1 level posterior and bilateral foraminal disc protrusion is seen. There are asymmetric mild right and moderate left L5-S1 neuroforamina stenosis. Unchanged Bilateral L5 laminectomy defects and resection of L5 spinous process. 4. Interval placement of Left posterior lateral L4-L5 junction level subcutaneous nerve stimulator with electrodes passing along the midline lumbar subcutaneous tissue to enter the lower thoracic spinal canal at T12 level.
[2023-06-19] MEDS: gadobutroL 10 ML VIAL IVPUSH (18:44)
== END 2023-06-19 16:17 | disposition home or self-care (01) ==
LOC: HO.MRI 16:16
PROVIDERS: PCP General Practice; Visit Provider Nurse Practitioner Family
DX: M96.1 Postlaminectomy syndrome, not elsewhere classified (principal); M48.061 Spinal stenosis, lumbar region without neurogenic claudication
CPT/HCPCS: 72141; 72156; 72158; A9585

== ENCOUNTER → 2023-06-21 08:22 | Outpatient (REF) | payer MEDICARE, SELFPAY ==
--- NOTE | ~2023-06-21 | NM_ITS ---
Lexiscan Myocardial perfusion study Indication: Chest pain, assess for coronary disease and ischemia Technique: The patient was brought in for a Lexiscan perfusion study on 06/21/2023 and was injected 0.4 mg of Lexiscan intravenously. Within a minute of this injection 30 mCi of sestamibi was given intravenously. Images were obtained using the SPECT gamma camera interlaced with the gating device. Images were obtained in supine position. Resting perfusion study was performed on 06/27/2023. Patient was administered 30 mCi of sestamibi intravenously at rest. Images were then obtained in supine position. Images were processed with the software and compared side to side in short axis, horizontal long axis and vertical long axis views. Total DLP 116mGy-cm. Findings: Raw acquisition reviewed. The stress perfusion study showed mildly diminished tracer uptake in the apical part of lateral wall. With CT attenuation correction, there is improvement suggestive of soft tissue attenuation artifact. The gated study shows normal LV systolic function with calculated LVEF of 63%. LV cavity is normal in size. The gated study shows normal wall thickening and contraction of segments. Resting study shows no significant perfusion defects. Gating at rest reveals normal wall motion with ejection fraction at 62%. The findings are consistent with reversible defect in the apical part of lateral wall suspected to be from soft tissue attenuation artifact. NM/NM cardiolite stress test Impression: 1. Myocardial perfusion imaging study shows probably normal myocardial perfusion. No definitive findings of any ischemia or infarction. 2. Gated LVEF is 60% during stress and 62% during rest. 3. Transient ischemic dilatation not present. EKG component of the test reported separately.
--- NOTE | 2023-06-21 08:25 | CA_ITS ---
Acquisition Time: 2023-06-21 09:14:26 Total Exercise Time: 00:02:00 Test Indications: HTN Medications: ATORVASTATIN DEPAKOTE LEVOTHYROXINE LISINOPRIL NIFEDIPINE Protocol: LEXISCAN Max HR: 116 BPM 78% of Pred: 148 BPM Max BP: 154/082 mmHG Max Work Load: 1.0 METS Pharmacological stress test with Lexiscan injection while sitting and kciking her legs, without anginal symptoms, without arrhythmias, with normotensive response to injection, with nondiagnoisitic EKGs. Aminophylline 75mg IVP given to reverse Lexiscan. Nuclear images pending. Test reviewed with Dr. Mcallister. Referred By: Katia Aragon Overread By: Katia Aragon
--- NOTE | 2023-06-21 08:25 | CA_ITS ---
Transthoracic Echocardiogram Patient (Last, First, Middle): Tamika Bhandari, Gender: Female Date of : 1950 Age: 72 Procedure Date: 06/21/2023 Procedure Type: Transthoracic Echocardiogram Location: OP Height: 149. cm Weight: 90.27 kg BSA: 1.83 m2 Heart Rate: bpm BP: 160 / [address] Production: TOBY Bar MD: Katia Aragon NP Ultrasound Sonographer: Beny Mcallister MD Symptoms: I10 - Essential (primary) hypertension Study Quality: Adequate ECG Rhythm: Sinus Conclusions: - 1. Normal LV ejection fraction 65-70% with mild LVH with impaired relaxation filling pattern 2. Mildly dilated left atrium 3. Normal cardiac valvular Doppler 4. No pericardial effusion Findings Left Ventricle Normal left ventricular size and systolic function. There is mildly increased left ventricular wall thickness. The visually estimated ejection fraction is between 65-70%. Spectral Doppler is indicative of an impaired relaxation filling pattern. E/E prime ratio is between 8 and 15 consistent with indeterminate filling pressures. Peak GLS is -18.6%, within normal limits. Right Ventricle Normal right ventricular cavity size and systolic function. Atria The left atrium is mildly dilated. There is lipomatous hypertrophy of the interatrial septum. There is no evidence of interatrial shunt. The right atrium is normal in size. Aortic Valve Normal aortic valve structure and function. There is no aortic valve stenosis. There is no aortic valve regurgitation. Mitral Valve Normal mitral valve structure and function. There is trace mitral valve regurgitation. There is no mitral valve stenosis. Pulmonic Valve The pulmonic valve is likely normal. Tricuspid Valve Likely normal tricuspid valve structure and function. Tricuspid regurgitation envelope is inadequate for calculation of right ventricular systolic pressure. Normal right atrial pressure. Great Vessels All visible segments of the aorta are normal in size. The pulmonary artery was not well visualized. There is no dilatation of the ascending aorta measuring 3.30 cm. Venous The inferior vena cava is normal in size and collapses greater than 50% with inspiration. Pericardium/Pleural There is no evidence of pericardial effusion. Measurements 2D Linear Measurements IVSd: 1.23 0.6-0.9/0.6-1.0 cm LVIDd: 4.46 3.9-5.3/4.2-5.9 cm LVIDd Index: 2.44 2.4-3.2/2.2-3.1 cm/m2 LVIDs: 2.52 2.0-3.6 cm LVPWd: 1.15 0.7-1.1 cm LA Diam: 3.70 2.7-3.8/3.0-4.0 cm LAIDs Index: 2.02 1.5-2.3 cm/m2 LV Mass: 240.55 67-162/88-224 g LV Mass Index: 131.45 43-95/49-115 g/m2 LVOT Diam: 1.90 3.0+(-)1.3 cm 2D Systolic Function EF 4C: 66.30 >55% EF 2C: 67.70 >55% EF BiP: 66.70 >55% Mitral Valve MV Pk E: 0.68 MV PK A: 0.82 MV Decel Time: 171.00 E/A: 0.80 E'Lateral: 5.87 E'Medial: 4.68 E/E' Med: 14.50 E/E' Lat: 11.50 PHT: 50.00 MVA PHT: 4.40 Decel Coleman: 3.95 Aortic Valve AoV Pk Tao: 1.52 AoV Mn Tao: 1.12 AoV VTI: 0.38 AoV Pk Grad: 9.00 Aov Mn Grad: 5.00 LEISA Cont.VTI: 1.98 LVOT LVOT Pk Tao: 1.07 LVOT Mn Tao: 0.69 LVOT VTI: 0.26 LVOT Pk Grad: 5.00 LVOT Mn Grad: 2.00 LVOT Diam: 1.90 LVOT Area: 2.84 Diastolic Function MV Pk E: 0.68 MV Pk A: 0.82 E/A: 0.80 E'Medial: 4.68 E/E' Med: 14.50 E' Laterial: 5.87 E/E' Lat: 11.50 Right Ventricle TAPSE (mm): 29.00 TVS' Tao: 10.70 Tricuspid Valve RA Press: 3.00 Great Vessels Aorta Sinus of Valsalva: 2.90 2.0-3.5 cm Ao Asc: 3.30 2.1-3.4 cm Pulmonary Valve PV Pk Tao: 1.07 Peak PV Grad: 5.00 Updated in Other Vendor System with Status of Final Beny Mcallister MD electronically signed on 06/22/2023 9:55:24 AM with status of Final
== END ==
LOC: HO.CARD 08:22
PROVIDERS: PCP General Practice; Visit Provider Nurse Practitioner
DX: I10 Essential (primary) hypertension (principal)
CPT/HCPCS: 78452; 93017; 93306; 93356; A9500; J0280; J2785

== ENCOUNTER → 2023-06-21 08:25 | Outpatient (BNV) | payer MEDICARE, SELFPAY | PROVIDERS: PCP General Practice; Visit Provider Nurse Practitioner | DX: R07.9 Chest pain, unspecified (principal) | CPT/HCPCS: 78452; 93016; 93018; 93306 ==

== ENCOUNTER 2023-07-27 14:41 | Outpatient (REF) | payer MEDICARE, SELFPAY ==
--- NOTE | ~2023-07-27 | XR_ITS ---
EXAMINATION: XR CHEST CLINICAL INFORMATION: Status post pneumonia. COMPARISON: Chest x-ray 07/30/2019 TECHNIQUE: 2 views of the chest were obtained. FINDINGS: The lungs are expanded with patchy opacity right upper lung likely infiltrate and/or atelectasis. Rest of the lungs are clear. There is linear air seen along the bilateral chest wall on PA projection most likely artifact. Heart size and pulmonary vascularity is normal. No gross bony abnormality seen.. Heart size and pulmonary vascularity is normal. No gross XR/XR chest 2V IMPRESSION: 1. Patchy opacity right upper lung likely infiltrate and/or atelectasis. It was noted on the previous chest x-ray 07/30/2019. May represent chronic thickening of minor fissure or fluid collection. 2. Rest of the lungs are clear.
== END 2023-07-27 14:42 | disposition home or self-care (01) ==
LOC: HO.HHCX 14:41
PROVIDERS: Visit Provider General Practice
DX: J18.9 Pneumonia, unspecified organism (principal)
CPT/HCPCS: 71046

== ENCOUNTER 2023-08-08 11:00 | Outpatient (REF) | payer MEDICARE, SELFPAY ==
--- NOTE | ~2023-08-08 | XR_ITS ---
EXAMINATION: XR CERVICAL SPINE CLINICAL INFORMATION: Spinal stenosis, cervical region COMPARISON: None available. TECHNIQUE: 4 views of the cervical spine with lateral flexion and extension views were obtained. FINDINGS: The bones are diffusely demineralized. There is no fracture. Prevertebral soft tissues are within normal limits. The patient is status post anterior cervical fusion with plate and intervertebral screws. The hardware appears intact. There is mild disc space narrowing at C6-C7 with marginal osteophyte formation. There is straightening of the usual cervical lordosis. There is minimal retrolisthesis of C3 with respect to C4. This is without significant change on flexion.. The patient demonstrates extremely limited flexion. This is slight increase in retrolisthesis on extension views. XR/XR cervical spine 4V IMPRESSION: 1. Status post anterior cervical fusion at C5-C6. The hardware appears intact. 2. Mild degenerative disc disease at C6-C7. 3. Minimal retrolisthesis of C3 with respect to C4.
== END 2023-08-08 11:01 | disposition home or self-care (01) ==
LOC: HO.HOSX 11:00
PROVIDERS: PCP General Practice; Visit Provider Physician Assistant
DX: M48.02 Spinal stenosis, cervical region (principal); G99.2 Myelopathy in diseases classified elsewhere
CPT/HCPCS: 72050; 99202

== ENCOUNTER 2023-08-08 11:00 | Outpatient (AMB) | payer MEDICARE, SELFPAY ==
--- NOTE | 2023-08-08 11:01 | MHC.OFFVIS ---
Intake Intake Visit Reasons: Radiculopathy, cervical region Academic Registrar Required: No Allergies aspirin [ASPIRIN] Allergy (Intermediate, Verified 05/10/23 13:46) HIVES Penicillins [PENICILLINS] Allergy (Intermediate, Verified 05/10/23 13:46) HIVES SEAFOOD Allergy (Severe, Uncoded 03/08/22 09:27) HIVES, THROAT CLOSES [facility] Medical History (Updated 06/19/23 @ 20:55 by MICHELLE Ellis) Hypertension Chronic pain syndrome Sacroiliitis Neuropathic pain Complex regional pain syndrome i of lower limb, bilateral Surgical History No pertinent past surgical history Family History Father Heart disease Mother Heart disease Social History Alcohol intake: never Patient Tobacco Use Status: Never used Tobacco Assessment & Plan Assessment & Plan (1) Stenosis of cervical spine with myelopathy: Code(s): M48.02 - Spinal stenosis, cervical region; G99.2 - Myelopathy in diseases classified elsewhere Plan Dear colleague, Thank you for referring Tamika to our office today. She is a pleasant 72 y/o female who comes in today with a CC of progressively worsening neck pain with radiation into her left upper extremity. When describing the radiation she states that it starts in her posterior neck goes over her left shoulder across her left bicep and terminates before the elbow. She states that the pain is constant and worsening day by day. It has gotten to the point where it keeps her up all night and she attempts to make herself comfortable throughout the night by adjusting her pillows. She feels as though the weakness in her bilateral hands (more so on the left) is getting worse, and her daughter who accompanies her today testifies to this as well. She finds herself dropping cups and various objects throughout the day. She states that her left-sided arm/hand weakness is also increasing getting to the point where it is difficult for her to complete her ADLs. She is attempted to utilize kubs-asm-[id number] pain medications without relief. She has been to physical therapy which she found was not helpful. 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 Of note her daughter accompanies her and reports that 2 years ago she got a bout of COVID which caused acute delirium. This delirium reportedly has been slow to recede and may have caused some kind of mild cognitive impairment. The patient has difficulty with recalling her medical history, and much of her history was filled in by her daughter. PMH: C4-5 ACDF completed at [facility] in [address] Abbott. Hypothyroidism, hypertension, hyperlipidemia, bipolar disorder. Social hx: Patient does not smoke, reports no substance use. Medications: Atorvastatin, Depakote, hydralazine, levothyroxine, lisinopril, nifedipine. Allergies: NKDA Physical exam: The patient has 4/5 strength of her left upper extremity, and 5/5 strength elsewhere. She does elicit some pain to full strength testing of her lower extremities but is able to follow through. She has some sensational changes over left upper extremity stating that it feels dull and reporting some tingling in her fingers diffusely. The rest of her sensation is intact. Her reflexes are 3+ hyperactive diffusely, but are more intense / notable on the left. She is able to ambulate well and rises from a seated position without much difficulty. She has multiple beats of clonus in her bilateral ankles, (+) bilateral Trevino's, (-) bilateral straight leg raise. Imaging review: MRI imaging from 2020 (before ACDF) was compared to imaging taken in June 2023. There is some progression noted of her central canal stenosis at C3-4 and C5-6. C4-5 has achieved fusion after ACDF, yet still shows signs of a posterior disc bulge causing severe central canal stenosis. There are still signs of myelomalacia behind the surgical site. This seems to have progressed slightly down and includes cord signal change at C5-6 where as previous imaging shows cord signal change well localized to C4-5. Impression: Tamika is a pleasant 72-year-old female comes in today with a chief complaint of neck pain with radiation into her left upper extremity. When describing her radiation she states that it shoots from her neck across her left shoulder over left deltoid into her left biceps. Of note she had a C4-5 ACDF completed in 2020, but continues to have the same symptoms she had prior to surgery. Her weakness has been worsening over the course of the last 2 years, and is now to the point where she is dropping things throughout the day and has difficulty completing her ADLs. She can not sleep at night and needs multiple pillows / adjustment throughout the night in order to get any rest due to her neck pain. She has multiple signs of myelopathy; hyperactive reflexes, Trevino's, clonus, and weakness on strength testing. She was evaluated in office today by Dr. Mendez alongside this automotive service writer. He offered her a C3-6 posterior laminectomy to help stop the progression of myelopathy and ideally reduce her neck pain and radiculopathy. She was tentatively scheduled for September 18 2023. Tamika was given risk and benefits of surgery including but not limited to infection, hematoma, nerve injury, durotomy, weakness, neck/throat injury, persistent pain, as well as the option to continue with conservative treatment and patient wishes to proceed with surgery. She is aware she should stop NSAIDs 7 days prior to surgery. All questions were answered to the best of our ability. If there is anything about this patients medical history that we have overlooked or concerns you have about us proceeding with surgery we would appreciate any input you can offer. Thank you for allowing us to care for your patient. The total time spent with this visit with this patient was 60 minutes reviewing history, physical exam, MRI imaging review, and implementation of treatment plan or further diagnostic testing Jewel Mendez MD,PhD [facility] Orders: Orders XR cervical spine 4V Today G99.2 - Myelopathy in diseases classified elsewhere, M48.02 - Spinal stenosis, cervical region Coding Level of Care Code New Pt Level 5 (50513) Diagnoses Stenosis of cervical spine with myelopathy M48.02; G99.2
== END 2023-08-08 13:21 | disposition home or self-care (01) ==
PROVIDERS: PCP General Practice; Referring Provider Nurse Practitioner Family; Visit Provider Physician Assistant
DX: M48.02 Spinal stenosis, cervical region (principal); G99.2 Myelopathy in diseases classified elsewhere
CPT/HCPCS: 99205

== ENCOUNTER → 2023-09-18 07:32 | Outpatient (BNV) | payer MEDICARE, SELFPAY | PROVIDERS: PCP General Practice; Visit Provider Internal Medicine | DX: I49.9 Cardiac arrhythmia, unspecified (principal) | CPT/HCPCS: 93010 ==

== ENCOUNTER → 2023-09-18 07:32 | Outpatient (BNV) | payer MEDICARE, SELFPAY | PROVIDERS: PCP General Practice; Visit Provider Physician Assistant | DX: M50.021 Cervical disc disorder at C4-C5 level with myelopathy (principal); M50.022 Cervical disc disorder at C5-C6 level with myelopathy | CPT/HCPCS: 63045; 63048; 99024; 99499 ==

== ENCOUNTER 2023-09-18 17:54 | Inpatient (IN) | payer OTHER, SELFPAY ==
[2023-09-17 10:00] VITALS: BMI 39.2
--- NOTE | 2023-09-17 13:09 | HO.ANESPROP2 ---
Documented by User: Olivia Carrillo NP 09/17/23 13:13 HPI - Anesthesia Eval Consult details Narrative: 72yo F for C3-4,C4-5,C5-6 Posterior Cervical Laminectomy Late surgical add on. Phone assessment only. Will need Labs/EKG DOS. Spinal stim in situ PMFSH Active Problems Active Problems: All Active Problems (Updated 09/17/23 @ 10:03 by Ester Sidhu, FARHAD) Stenosis of cervical spine with myelopathy (Acute) Hypothyroidism (Acute) History of recent fall (Acute) Lumbar radiculopathy, chronic (Acute) Post laminectomy syndrome (Acute) Lumbar spinal stenosis (Acute) Uncontrolled hypertension (Acute) Cervicalgia (Acute) Myofascial pain syndrome, cervical (Acute) Cervical radiculopathy (Acute) Chronic pain syndrome (Acute) Sacroiliitis (Acute) Neuropathic pain (Acute) Complex regional pain syndrome i of lower limb, bilateral (Acute) Past Medical History Medical History (Updated 09/17/23 @ 10:03 by Ester Sidhu RN) Full dentures Numbness Personal history of COVID-19 (~06/2023) Neck pain Back pain Arthritis Hypothyroidism Depression Migraine Asthma Elevated cholesterol Hypertension Chronic pain syndrome Sacroiliitis Neuropathic pain Complex regional pain syndrome i of lower limb, bilateral Family History Family History Father Heart disease Mother Heart disease Surgical History Surgical History (Updated 09/17/23 @ 09:56 by Ester Sidhu RN) Hx of cervical spine surgery (~2022) Hx of hysterectomy S/P insertion of spinal cord stimulator Social History Social History Are you a primary respiratory care faculty to a significant other at home: No Do you presently have visiting nurse or other home services: No Alcohol intake: never Patient Tobacco Use Status: Never used Tobacco Use of substances other than those prescribed or required for medical reasons: No Have you been hit, kicked, punched, or otherwise hurt by someone within the past year? If so, by whom?: No Are you DNR?: No Advance Directives: No Advance Directives Information Provided: Yes Advance Directives on File: No Recently lost weight without trying: No Nutrition Risks: No Nutritional Risk Meds Allergies Allergy/AdvReac Type Severity Reaction Status Date / Time aspirin [ASPIRIN] Allergy Severe HIVES Verified 09/17/23 09:55 Penicillins [PENICILLINS] Allergy Severe HIVES Verified 09/17/23 09:55 shellfish derived Allergy Severe Anaphylaxis Verified 09/17/23 09:55 SEAFOOD Allergy Severe Anaphylaxis Uncoded 09/17/23 09:54 Home Medications Medication Instructions Recorded Confirmed Last Taken Type atorvastatin 40 mg tablet (Lipitor) 40 mg PO QHS 05/10/23 09/17/23 Unknown History divalproex 250 mg tablet,delayed 250 mg PO BID 05/10/23 09/17/23 09/18/23 History release (Depakote) hydralazine 25 mg tablet 25 mg PO TID 05/10/23 09/17/23 09/18/23 History levothyroxine 125 mcg capsule 125 mcg PO DAILY 05/10/23 09/17/23 09/18/23 History lisinopril 40 mg tablet 40 mg PO DAILY 05/10/23 09/17/23 Unknown History nifedipine 30 mg tablet,extended 30 mg PO DAILY 05/10/23 09/17/23 09/18/23 History release albuterol sulfate 90 mcg/actuation 2 puff inhalation Q4H PRN 09/17/23 09/17/23 Unknown History aerosol inhaler (Ventolin HFA) Shortness Of Breath Or Wheezing fluticasone 250 mcg-salmeterol 50 1 ea inhalation BID 09/17/23 09/17/23 Unknown History mcg/dose blistr powdr for inhalation Exam Height,Weight and Vital Signs: Height 4 ft 11 in Weight 87.997 kg Assessment and Plan Assessment Anesthesia Assessment: Chart Reviewed Documented by User: Silas Sevilla MD 09/18/23 12:44 [facility] Past Medical History Medical History (Updated 09/17/23 @ 10:03 by Ester Sidhu RN) Full dentures Numbness Personal history of COVID-19 (~06/2023) Neck pain Back pain Arthritis Hypothyroidism Depression Migraine Asthma Elevated cholesterol Hypertension Chronic pain syndrome Sacroiliitis Neuropathic pain Complex regional pain syndrome i of lower limb, bilateral Family History Family History Father Heart disease Mother Heart disease Family history of problems with anesthesia: No Surgical History Surgical History (Updated 09/17/23 @ 09:56 by Ester Sidhu RN) Hx of cervical spine surgery (~2022) Hx of hysterectomy S/P insertion of spinal cord stimulator History of Problems with Anesthesia: No Social History Social History Are you a primary respiratory care faculty to a significant other at home: No Do you presently have visiting nurse or other home services: No Alcohol intake: never Patient Tobacco Use Status: Never used Tobacco Use of substances other than those prescribed or required for medical reasons: No Have you been hit, kicked, punched, or otherwise hurt by someone within the past year? If so, by whom?: No Are you DNR?: No Advance Directives: No Advance Directives Information Provided: Yes Advance Directives on File: No Recently lost weight without trying: No Nutrition Risks: No Nutritional Risk Meds Allergies Allergy/AdvReac Type Severity Reaction Status Date / Time aspirin [ASPIRIN] Allergy Severe HIVES Verified 09/17/23 09:55 Penicillins [PENICILLINS] Allergy Severe HIVES Verified 09/17/23 09:55 shellfish derived Allergy Severe Anaphylaxis Verified 09/17/23 09:55 SEAFOOD Allergy Severe Anaphylaxis Uncoded 09/17/23 09:54 Home Medications Medication Instructions Recorded Confirmed Last Taken Type atorvastatin 40 mg tablet (Lipitor) 40 mg PO QHS 05/10/23 09/17/23 Unknown History divalproex 250 mg tablet,delayed 250 mg PO BID 05/10/23 09/17/23 09/18/23 History release (Depakote) hydralazine 25 mg tablet 25 mg PO TID 05/10/23 09/17/23 09/18/23 History levothyroxine 125 mcg capsule 125 mcg PO DAILY 05/10/23 09/17/23 09/18/23 History lisinopril 40 mg tablet 40 mg PO DAILY 05/10/23 09/17/23 Unknown History nifedipine 30 mg tablet,extended 30 mg PO DAILY 05/10/23 09/17/23 09/18/23 History release albuterol sulfate 90 mcg/actuation 2 puff inhalation Q4H PRN 09/17/23 09/17/23 Unknown History aerosol inhaler (Ventolin HFA) Shortness Of Breath Or Wheezing fluticasone 250 mcg-salmeterol 50 1 ea inhalation BID 09/17/23 09/17/23 Unknown History mcg/dose blistr powdr for inhalation Exam Airway Mallampati Class: II TM Dist: >3cm Neck ROM: Limited Denture: Upper and Lower Assessment and Plan Assessment Anesthesia Assessment: Anesthesia Plan Discussed Final Anesthetic Review Family History of Problems with Anesthesia: No History of Problems with Anesthesia: No NPO: Yes ASA Class: III Final Preanesthetic Review: No Changes in Pt Med Stat, Meds/Allgs Chart Reviewed, Consent Obtained/Reviewed and Anes Risks/Benef Reviewed Patient Risk: Intermediate Procedure Risk: Intermediate Anesthetic Plan Anesthetic Plan: GA Disposition: Standard PACU
[2023-09-18] VITALS (19 sets, daily range): BP systolic 111–185; BP diastolic 43–94; PULSE 65–104; RESP 10–20; TEMP 36.1–36.9; O2SAT 94–99; BMI 40.2
--- NOTE | ~2023-09-18 | FL_ITS ---
EXAMINATION: XR FLUOROSCOPY WITH IMAGES CLINICAL INFORMATION: C3-C4, C4-C5 and C5-C6 posterior cervical laminectomies. COMPARISON: Intraoperative fluoroscopy dated 08/10/2021. TECHNIQUE: Fluoroscopy Supervised By: Dr. Andrew Mendez. Fluoroscopy Time: 2.2 seconds. Cumulative Dose: 0.3379 mGy. DAP: 0.1400 Gycm2. Images: 2. FINDINGS: The initial image shows a probe with tip positioned at the C2-C3 posterior elements. An anterior fixator plate is seen at C4-C5 . The second submitted image shows a retractor situated at the C4-C5 level. FL/FL guidance in OR IMPRESSION: Intraoperative fluoroscopy is provided during C3-C4, C4-C5 and C5-C6 posterior cervical laminectomies. Please see the patient's Operative Report for full procedural details.
--- NOTE | 2023-09-18 06:58 | P.HPSUR_ITS ---
Pre-Procedural Eval Section A - 24 Hr Update-Section A only Date of Service: 09/18/23 The patient is an INPATIENT: No Changes since office visit: No Cold of Flu in the past 2 weeks, No New Medical Problems, No Changes in Medication and No Patient answered all questions Section B - Complete if H&P > 30 days Chief Complaint: Spinal stenosis, cervical region Allergies: Allergies Allergy/AdvReac Type Severity Reaction Status Date / Time aspirin [ASPIRIN] Allergy Severe HIVES Verified 09/17/23 09:55 Penicillins [PENICILLINS] Allergy Severe HIVES Verified 09/17/23 09:55 shellfish derived Allergy Severe Anaphylaxis Verified 09/17/23 09:55 SEAFOOD Allergy Severe Anaphylaxis Uncoded 09/17/23 09:54 Review of Systems Sugical H&P ROS: Negative: Constitution, Cardiovascular, Respiratory, Neurological, Psychiatric, Hem-Onc, Allergic/Immunologic, Gastrointestinal, Genitourinary, Musculoskeletal, Integumentary, Endocrine and Eyes /Ears/Nose/Throat Exam Surgical H&P Exam: Not Evaluated: HEENT, Not Evaluated: Heart, Not Evaluated: Lungs, Not Evaluated: Extremities, Not Evaluated: Abdomen, Not Evaluated: Skin and Not Evaluated: Neurological Plan Diagnosis/Plan: Unchanged C3-6 laminectomy Time Spent With Patient Time: Total time managing care of this patient today __9__ minutes.
--- NOTE | 2023-09-18 07:32 | ECG_ITS ---
Test Reason : preop Blood Pressure : / mmHG Vent. Rate : 061 BPM Atrial Rate : 061 BPM P-R Int : 158 ms QRS Dur : 086 ms QT Int : 452 ms P-R-T Axes : 047 004 -21 degrees QTc Int : 455 ms Sinus rhythm with marked sinus arrhythmia Inferior infarct , age undetermined Nonspecific ST and T wave abnormality Abnormal ECG No previous ECGs available Referred By: Olivia Carrillo Electronically Signed By:SHIRLEY THAYER
[2023-09-18] MEDS: vancomycin HCL 1,500 MG in 0.9 % Sodium Chloride 500 ML 333.33 MG IV (12:35)
[2023-09-18] MEDS: methocarbamoL 750 MG TABLET PO (12:35)
[2023-09-18] MEDS: Gabapentin 300 MG CAPSULE PO ×2 (12:36→22:57)
[2023-09-18] MEDS: Lactated Ringers 1,000 ML 100 ML IVCONT (12:36)
[2023-09-18 12:52] LABS: Hematocrit 39.3 % (37.0-47.0); Hemoglobin 13.1 g/dl (12.0-16.0); Mean Corpuscular HGB Conc 33.3 g/dl (31.0-35.0); Mean Corpuscular Hemoglobin 28.8 pg (27.0-33.0); Mean Corpuscular Volume 86.4 fL (80.0-98.0); Platelet Count 222 X10*3/uL (160-400); Red Blood Count 4.55 X10*6/uL (4.20-5.50); Red Cell Distribution Width 12.3 % (11.0-16.0); White Blood Count 5.5 X10*3/uL (4.8-10.8)
[2023-09-18 12:58] LABS: Anion Gap 13 (12-20); Blood Urea Nitrogen 7 mg/dL (9-16); Calcium 9.5 mg/dL (8.4-10.2); Carbon Dioxide 27 mmol/L (22-29); Chloride 104 mmol/L (96-108); Creatinine Clr Calc Pharmacy 49.8; Estimated Glomerular Filt Rate 55; Glucose Fasting 98 mg/dL (60-99); Potassium 3.3 mmol/L (3.3-5.1); Sodium 141 mmol/L (135-145)
--- NOTE | 2023-09-18 17:03 | PM.DS ---
DS: Providers Provider Date of Service: 09/18/23 Primary care physician: Alanna Phillips MD DS: Summary Time Attestation Discharge Coordination Time (in mins): 15 Quality: Safe Use of Opioids Does Pt have an Active Cancer Diagnosis on the Problem List?: No Quality: Stroke Does the patient have a stroke diagnosis?: No Physical Exam Vital Signs: Vital Signs: Last Vital Signs Temp 98.4 F 09/18/23 11:11 Pulse 69 09/18/23 12:07 Resp 18 09/18/23 12:07 BP 185/94 H 09/18/23 12:07 Pulse Ox 98 09/18/23 12:07 O2 Del Method Room Air 09/18/23 12:07 BMI result Body Mass Index 40.2 DS: Data Data Completed and Pending Labs on day of discharge: Laboratory Results - last 24 hr 09/18/23 12:37 WBC 5.5 RBC 4.55 Hgb 13.1 Hct 39.3 MCV 86.4 MCH 28.8 MCHC 33.3 RDW 12.3 Plt Count 222 MPV 10.0 Absolute Nucleated RBC 0.000 Nucleated RBC % (auto) 0.0 Sodium 141 Potassium 3.3 Chloride 104 Carbon Dioxide 27 Anion Gap 13 BUN 7 L Creatinine 1.00 Estim Creat Clear Calc 49.8 Estimated GFR 55 Fasting Glucose 98 Calcium 9.5 Discharge Plan Discharge Patient Disposition: Home, Self-Care Referrals: Alanna Phillips MD [Primary Care Provider] - 1 Week Discharge Medications: New sulfamethoxazole-trimethoprim [Bactrim DS] 800-160 mg tablet 1 tab PO BID Qty: 2 0RF oxycodone 5 mg tablet 5 mg PO Q6H PRN (Reason: severe pain (scale score 7-10)) Qty: 40 0RF Rx Instructions: Partial Fill upon patient request. Continued albuterol sulfate [Ventolin HFA] 90 mcg/actuation HFA aerosol inhaler 2 puff INHALATION Q4H PRN (Reason: Shortness Of Breath Or Wheezing) fluticasone propion-salmeterol 250-50 mcg/dose blister with device 1 ea inhalation BID hydralazine 25 mg tablet 25 mg PO TID lisinopril 40 mg tablet 40 mg PO DAILY nifedipine 30 mg tablet extended release 30 mg PO DAILY atorvastatin [Lipitor] 40 mg tablet 40 mg PO QHS divalproex [Depakote] 250 mg tablet,delayed release (DR/EC) 250 mg PO BID levothyroxine 125 mcg capsule 125 mcg PO DAILY Discharge Orders: Discharge Order (Routine); Ordered 09/18/23 Ordered By: Jewel Almanza Diet: Advance to usual diet Activity on Discharge: As tolerated Activity Restrictions/Additional Instructions: After your spinal surgery we ask you to observe the following restrictions/guidelines: Activity: It is normal to feel some discomfort as you increase your activity, but that will improve with time. We ask you avoid heavy lifting or acitivities that cause pain. As a general rule, 8lbs is a safe limit for lifting right after surgery. Walk as much as you feel comfortable but not to exhaustion. You will feel extra tired the first few days after surgery. Stay well hydrated. It is OK to walk up and down stairs You may return to driving when you are off narcotics (such as vicodin, oxycodone, dilaudid, etc), and you are back to normal functional capacity. If you have any concerns please check with office before driving. Return to work is specific to each patient and each surgery, so please speak with your doctor/PA at first follow up. Please bring paperwork such as FMLA at that time if you need it filled out. Medications: We will give you a short supply of narcotics after surgery (usually one weeks worth). If you need more please call the office but do not use more than prescribed. You will need to give our office 48 hours notice if you need narcotics refilled and we do not fill narcotics on weekends or evenings. You will be prescribed 2 doses of Bactrim DS. Please take these tomorrow 09/19/23. (one in the morning one at night). Please keep the incision area clean. If you are on a narcotic, it is a good idea to take a stool softener such as colace or senna to avoid constipation If you take blood thinner such as aspirin, Plavix, Coumadin, Effient, Eliquis etc for conditions such as Afib, DVT, Pulmonary embolus, coronary disease, stents etc please speak with your surgeon about specific details as to when you can resume these medications. You can resume NSAIDs on post op day 1 (eg: Motrin, Naproxen, etc). Follow up: Please call the office, , after surgery to arrange a 3 week follow up for wound check. Wound Care: You may remove your dressing on the first day after surgery. ?You may ?leave open to air. Please do not remove the steri strips underneath. they will fall off on their own in one week. IT IS NORMAL FOR THE WOUND TO OOZE OR BE BLOODY FOR A FEW DAYS AFTER SURGERY. ?IF THIS HAPPENS JUST PLACE NEW DRESSING OVER IT TO AVOID STAINING CLOTHES. You may shower on post op day # 1 We ask that you do not let the water soak the wound. If it does get wet, just towel dry lightly. Please do not scrub your incision or place any type of chemical/ointment on the wound. No tub baths, pools or jacuzzis for one month. If you have any leaking or redness from your wound, or fevers, please call the office.
--- NOTE | 2023-09-18 17:19 | W.PM.OPN ---
Operative Note Operative Note Date of Service: 09/18/23 Narrative: Preoperative Diagnosis: cervical myelopathy Operation: C4-C6 laminectomy Consent Informed Consent was obtained for this operation. I have explained the nature, purpose and benefits of the operation. I have discussed the risks and benefit of the operation including possible complications or adverse events with patient/family. Alternative(s) were discussed with the patient with their relative benefits and risks as well as the consequences of not accepting the operation were included in obtaining consent. Surgeon: SARAN KAUR MD, PHD Procedure Assisted By: SHAHEED Weiss Description of Procedure This patient had a previous anterior diskectomy and fusion done in another institution. Repeat imaging shows ongoing multilevel spinal cord compression. She was offered a multilevel posterior cervical decompression. The procedure complications were explained. The patient was consented. The patient was brought to the operating room and endotracheally intubated. The patient was turned in prone position on the gel rolls with the head fixated in Navarro. Prep and drape was done followed by timeout. a midcervical incision was made. Dissection was carried down the midline to avoid blood loss. The paravertebral muscles were released to expose the C3-C6 laminae in preparation for the laminectomy. a Leksell was used to perform a partial of C4-C6 laminectomy. An x-ray confirmed the correct levels. A # 2. and 3 Kerrison were used to complete a C4-C6 laminectomy. The laminectomy was extended laterally near flush with the pedicles. This resulted in good decompression of the spinal cord. Originally, the plan was to include C3 as well into the decompression but this was deemed not necessary intraoperatively. Extensive hemostasis was done after which the physician dietary assistant closed the fascia and subcutaneous layer with 2-0 Vicryl. Windsor were used to approximate the incision. All sponge and needle counts were correct. The Navarro was removed. Patient was extubated and transported in a stable base to the recover room Anesthesia: General Estimated Blood Loss (ml): 130 mL Duration of Surgery: Under 60 Minutes Postoperative Plan: 23 hour observation for pain control neuro monitoring
[2023-09-18] MEDS: oxyCODONE HCl Immed Release 5 MG TABLET PO (18:20)
[2023-09-18] MEDS: fentaNYL citrate/PF 100 MCG/2 ML VIAL 50 MCG IVPUSH ×2 (18:20→18:30)
[2023-09-18] MEDS: Docusate Sodium 100 MG CAPSULE PO (20:09)
[2023-09-18] MEDS: Acetaminophen 325 MG TABLET 975 MG PO (20:09)
[2023-09-18] MEDS: Divalproex Sodium 250 MG TABLET.DR PO (22:57)
[2023-09-18] MEDS: hydrALAZINE HCl 25 MG TABLET PO (22:57)
[2023-09-18] MEDS: Atorvastatin Calcium 40 MG TABLET PO (22:57)
[2023-09-18] MEDS: oxyCODONE HCl Immed Release 5 MG TABLET 10 MG PO (23:05)
[2023-09-19] MEDS: vancomycin HCL 1,500 MG in 0.9 % Sodium Chloride 500 ML 333.33 MG IV (00:02)
[2023-09-19] MEDS: HYDROmorphone HCl 1 MG/ML SYRINGE IVPUSH ×2 (00:16→08:35)
[2023-09-19] MEDS: Acetaminophen 325 MG TABLET 975 MG PO ×3 (02:36→14:01)
[2023-09-19 03:11] VITALS: BP 148/69; PULSE 97; RESP 18; TEMP 36; O2SAT 96
[2023-09-19] MEDS: oxyCODONE HCl Immed Release 5 MG TABLET 10 MG PO ×2 (05:50→09:12)
[2023-09-19] MEDS: Levothyroxine Sodium 125 MCG TABLET PO (05:51)
[2023-09-19 06:53] VITALS: BP 137/65; PULSE 88; RESP 16; TEMP 36.6; O2SAT 96
[2023-09-19] MEDS: Fluticasone/Vilanterol 100/25 BLST.W.DEV 1 PUFF INHALE (08:03)
[2023-09-19 08:10] VITALS: PULSE 88; RESP 16; O2SAT 93
[2023-09-19] MEDS: Docusate Sodium 100 MG CAPSULE PO (08:28)
[2023-09-19] MEDS: lisinopriL 40 MG TABLET PO (08:28)
[2023-09-19] MEDS: NIFEdipine ER 30 MG TAB.ER.24 PO (08:28)
[2023-09-19] MEDS: Gabapentin 300 MG CAPSULE PO ×2 (08:29→14:01)
[2023-09-19] MEDS: Divalproex Sodium 250 MG TABLET.DR PO (08:29)
[2023-09-19] MEDS: hydrALAZINE HCl 25 MG TABLET PO ×2 (08:29→14:02)
--- NOTE | 2023-09-19 09:06 | PM.DS ---
DS: Providers Provider Date of Service: 09/19/23 Date of admission: 09/18/23 17:54 Primary care physician: Alanna Phillips MD DS: Summary Time Attestation Discharge Coordination Time (in mins): 25 Quality: Safe Use of Opioids Does Pt have an Active Cancer Diagnosis on the Problem List?: No Quality: Stroke Does the patient have a stroke diagnosis?: No Physical Exam Vital Signs: Vital Signs: Last Vital Signs Temp 98 F 09/19/23 06:53 Pulse 88 09/19/23 08:10 Resp 16 09/19/23 08:10 BP 137/65 09/19/23 06:53 Pulse Ox 96 09/19/23 06:53 O2 Del Method Room Air 09/19/23 06:53 O2 Flow Rate 2 09/19/23 03:11 FiO2 48 09/18/23 18:55 BMI result Body Mass Index 40.2 DS: Data Data Completed and Pending Labs on day of discharge: Laboratory Results - last 24 hr 09/18/23 12:37 WBC 5.5 RBC 4.55 Hgb 13.1 Hct 39.3 MCV 86.4 MCH 28.8 MCHC 33.3 RDW 12.3 Plt Count 222 MPV 10.0 Absolute Nucleated RBC 0.000 Nucleated RBC % (auto) 0.0 Sodium 141 Potassium 3.3 Chloride 104 Carbon Dioxide 27 Anion Gap 13 BUN 7 L Creatinine 1.00 Estim Creat Clear Calc 49.8 Estimated GFR 55 Fasting Glucose 98 Calcium 9.5 Discharge Plan Discharge Anticipated Discharge Date/Time: 09/19/23 09:06 Patient Disposition: Home, Self-Care Discharge Diagnosis: s/p C3-6 posterior laminectomy Referrals: Alanna Phillips MD [Primary Care Provider] - 1 Week Discharge Medications: New sulfamethoxazole-trimethoprim [Bactrim DS] 800-160 mg tablet 1 tab PO BID Qty: 2 0RF oxycodone 5 mg tablet 5 mg PO Q6H PRN (Reason: severe pain (scale score 7-10)) Qty: 40 0RF Rx Instructions: Partial Fill upon patient request. gabapentin 300 mg capsule 300 mg PO TID Qty: 60 0RF acetaminophen 500 mg tablet 1,000 mg PO TID PRN (Reason: severe pain (scale score 7-10)) Qty: 42 0RF Continued albuterol sulfate [Ventolin HFA] 90 mcg/actuation HFA aerosol inhaler 2 puff INHALATION Q4H PRN (Reason: Shortness Of Breath Or Wheezing) fluticasone propion-salmeterol 250-50 mcg/dose blister with device 1 ea inhalation BID hydralazine 25 mg tablet 25 mg PO TID lisinopril 40 mg tablet 40 mg PO DAILY nifedipine 30 mg tablet extended release 30 mg PO DAILY atorvastatin [Lipitor] 40 mg tablet 40 mg PO QHS divalproex [Depakote] 250 mg tablet,delayed release (DR/EC) 250 mg PO BID levothyroxine 125 mcg capsule 125 mcg PO DAILY Discharge Orders: Discharge Order (Routine); Ordered 09/18/23 Ordered By: Jewel Almanza Diet: Advance to usual diet Activity on Discharge: As tolerated Activity Restrictions/Additional Instructions: After your spinal surgery we ask you to observe the following restrictions/guidelines: Activity: It is normal to feel some discomfort as you increase your activity, but that will improve with time. We ask you avoid heavy lifting or acitivities that cause pain. As a general rule, 8lbs is a safe limit for lifting right after surgery. Walk as much as you feel comfortable but not to exhaustion. You will feel extra tired the first few days after surgery. Stay well hydrated. It is OK to walk up and down stairs You may return to driving when you are off narcotics (such as vicodin, oxycodone, dilaudid, etc), and you are back to normal functional capacity. If you have any concerns please check with office before driving. Return to work is specific to each patient and each surgery, so please speak with your doctor/PA at first follow up. Please bring paperwork such as FMLA at that time if you need it filled out. Medications: We will give you a short supply of narcotics after surgery (usually one weeks worth). If you need more please call the office but do not use more than prescribed. You will need to give our office 48 hours notice if you need narcotics refilled and we do not fill narcotics on weekends or evenings. Take tylenol, gabapentin, and Oxycodone as scheduled for proper pain control. You will be prescribed 2 doses of Bactrim DS. Please take one dose today, one dose tomorrow. Please keep the incision area clean. If you are on a narcotic, it is a good idea to take a stool softener such as colace or senna to avoid constipation If you take blood thinner such as aspirin, Plavix, Coumadin, Effient, Eliquis etc for conditions such as Afib, DVT, Pulmonary embolus, coronary disease, stents etc please speak with your surgeon about specific details as to when you can resume these medications. You can resume NSAIDs on post op day 1 (eg: Motrin, Naproxen, etc). Follow up: Please call the office, , after surgery to arrange a 3 week follow up for wound check. Wound Care: You may remove your dressing on the first day after surgery. ?You may ?leave open to air. Please do not remove the steri strips underneath. they will fall off on their own in one week. IT IS NORMAL FOR THE WOUND TO OOZE OR BE BLOODY FOR A FEW DAYS AFTER SURGERY. ?IF THIS HAPPENS JUST PLACE NEW DRESSING OVER IT TO AVOID STAINING CLOTHES. You may shower on post op day # 1 We ask that you do not let the water soak the wound. If it does get wet, just towel dry lightly. Please do not scrub your incision or place any type of chemical/ointment on the wound. No tub baths, pools or jacuzzis for one month. If you have any leaking or redness from your wound, or fevers, please call the office. Care Plan Goals: Return to normal activity as tolerated Health Concerns: None Plan of Treatment: Follow-up in clinic in 10 days for staple removal Assessment: POD: 1 Procedure: C3-6 posterior decompression Tamkia was seen this morning on [facility] sitting upright in bed eating breakfast. She reports she has been up out of bed to the bathroom multiple times. She states that the feeling of numbness in her bilateral fingers is better than it was pre-operatively, however she still has some tingling in both of her fingers, which was also a preoperative finding. She still reports quite a bit of posterior neck pain, with adequate relief with pain medication. She is voiding well, tolerating diet. Afebrile, vital signs stable. No new neurological deficits. Hand sales and operations trainee strength is 5/5. Lower extremity strength is 5/5. Posterior neck dressing has some staining without signs of hematoma. No active sanguineous drainage. Area is dry. Plan: Patient meets criteria to be medically discharged home. I will have her on the following regimen: 2 doses of Bactrim for postoperative prophylaxis, 1,000mg Tylenol 3 times daily, 300mg Gabapentin 3 times daily, and Oxycodone q6h prn severe pain. This should provide good pain control. She is expected to have pain in the back of her neck for the next couple of weeks, as was discussed with her during this encounter. This plan was discussed with the attending neurosurgeon Dr. Mendez.
--- NOTE | 2023-09-19 09:15 | HO.NEUROPN_ITS ---
Neurosurgery Operative Note Date of Service: 09/19/23 Narrative: POD: 1 Procedure: C3-6 posterior decompression Tamika was seen this morning on [facility] sitting upright in bed eating breakfast. She reports she has been up out of bed to the bathroom multiple times. She states that the feeling of numbness in her bilateral fingers is better than it was pre-operatively, however she still has some tingling in both of her fingers, which was also a preoperative finding. She still reports quite a bit of posterior neck pain, with adequate relief with pain medication. She is voiding well, tolerating diet. Afebrile, vital signs stable. No new neurological deficits. Hand lithographer apprentice strength is 5/5. Lower extremity strength is 5/5. Posterior neck dressing has some staining without signs of hematoma. No active sanguineous drainage. Area is dry. Plan: Patient meets criteria to be medically discharged home. I will have her on the following regimen: 2 doses of Bactrim for postoperative prophylaxis, 1,000mg Tylenol 3 times daily, 300mg Gabapentin 3 times daily, and Oxycodone q6h prn sev ere pain. This should provide good pain control. She is expected to have pain in the back of her neck for the next couple of weeks, as was discussed with her during this encounter. This plan was discussed with the attending neurosurgeon Dr. Mendez.
--- NOTE | 2023-09-19 10:25 | PHA.MEDREC ---
Pharmacy Consult ? Medication Reconciliation Pharmacy has completed the medication reconciliation. Spoke with patient, patient used meds with the help of list.
--- NOTE | 2023-09-19 10:44 | MHC.CM.PN ---
PATIENT LIVES ALONE AT THIS TIME. SHE HAS A CANE BUT RARELY USES IT. AT [place], SHE WILL BE STAYING WITH HER SON/HCP/POA. COPY OF HCP REQUESTED SHE NO LONGER HAS SHANK [employer] RN VISITS [id number] THROUGH HER MANAGED INSURANCE PLAN. PLAN IS HOME TODAY - SELF CARE IMM 09/18 IN CHART
[2023-09-19] MEDS: oxyCODONE HCl Immed Release 5 MG TABLET PO (14:01)
== END 2023-09-19 15:20 | disposition home or self-care (01) | DRG 520 ==
LOC: HO.SSSA 17:57 → HO.S3 18:20
PROVIDERS: Neurological Surgery; Nurse Practitioner; Admitting Provider Physician Assistant; PCP General Practice; Visit Provider Physician Assistant
PROC: 00NW0ZZ Release Cervical Spinal Cord, Open Approach (ICD-10-PCS; principal; 2023-09-18 13:40)
DX: M48.02 Spinal stenosis, cervical region (principal); Z98.1 Arthrodesis status; Z79.51 Long term (current) use of inhaled steroids; Z79.890 Hormone replacement therapy; Z79.899 Other long term (current) drug therapy
CPT/HCPCS: 36415; 80048; 85027; 93005; 94640; J0131; J0360; J1170; J1805; J2371; J2704; J3010; J3371

== ENCOUNTER 2023-09-28 11:18 | Outpatient (AMB) | payer OTHER, SELFPAY ==
--- NOTE | 2023-09-28 11:19 | A.SPINEOV_ITS ---
Intake Intake Visit Reasons: 1st post-op for Staple Removal Intake Note: Ms. Bhandari is here today for 1st Post op and staple removal. Kindergarten Teacher Required: No Allergies aspirin [ASPIRIN] Allergy (Severe, Verified 09/17/23 09:55) HIVES Penicillins [PENICILLINS] Allergy (Severe, Verified 09/17/23 09:55) HIVES shellfish derived Allergy (Severe, Verified 09/17/23 09:55) Anaphylaxis SEAFOOD Allergy (Severe, Uncoded 09/17/23 09:54) Anaphylaxis Assessment & Plan Assessment & Plan (1) Stenosis of cervical spine with myelopathy: Code(s): M48.02 - Spinal stenosis, cervical region; G99.2 - Myelopathy in diseases classified elsewhere Plan Tamika comes in today for a staple removal after her C4-6 posterior laminotomy. She reports no shooting pains into her left upper extremity as she did prior to surgery. She does state that she still has quite a bit of posterior neck pain. Overall she is doing well, although did have some difficulty with ambulation directly after surgery. She is ambulating well today but does use a cane. No new neurological deficits. Posterior incision site is closed and well healed. [place] removed that were overlying incision site. The patient did bleed, and had approximately 1-2 mL of serosanguineous drainage. Overall, Tamika is doing well. Her posterior incision site looks good. I did overlie it with some Exofin as there was a scant amount of bleeding. Additionally, I placed her on 5 days of Bactrim as a prophylactic measure. Per her request I also refilled her medications. Jewel Mendez MD,PhD [facility] Medications: New acetaminophen 500 mg PO Q6H PRN 42 tabs 0RF moderate pain (scale score 5-6) oxycodone-acetaminophen 5-325 mg Partial Fill upon patient request. 1 tab PO Q6H PRN 30 tabs 0RF severe pain (scale score 7-10) sulfamethoxazole-trimethoprim 800-160 mg (Bactrim DS) 1 tab PO BID 5 days 10 tabs 0RF prophylaxis Coding Level of Care Code Global (49414) Diagnoses Stenosis of cervical spine with myelopathy M48.02; G99.2
== END 2023-09-28 11:54 | disposition home or self-care (01) ==
PROVIDERS: PCP General Practice; Visit Provider Physician Assistant
DX: M48.02 Spinal stenosis, cervical region (principal); G99.2 Myelopathy in diseases classified elsewhere
CPT/HCPCS: 99024

== ENCOUNTER → 2023-09-28 11:18 | Outpatient (BNVA) | payer OTHER, SELFPAY | PROVIDERS: PCP General Practice; Visit Provider Physician Assistant | DX: M48.02 Spinal stenosis, cervical region (principal); G99.2 Myelopathy in diseases classified elsewhere; Z48.02 Encounter for removal of sutures; Z98.890 Other specified postprocedural states | CPT/HCPCS: 99212 ==

== ENCOUNTER 2023-11-08 10:44 | Outpatient (AMB) | payer OTHER, SELFPAY ==
--- NOTE | 2023-11-08 10:45 | A.SPINEOV_ITS ---
Intake Visit Reasons: 2nd post op Intake Note: Ms. Bhandari is here today for her 2nd Post-op appointment. Molecular Biology Scientist Required: No Allergies aspirin [ASPIRIN] Allergy (Severe, Verified 11/08/23 10:47) HIVES Penicillins [PENICILLINS] Allergy (Severe, Verified 11/08/23 10:47) HIVES shellfish derived Allergy (Severe, Verified 11/08/23 10:47) Anaphylaxis SEAFOOD Allergy (Severe, Uncoded 09/17/23 09:54) Anaphylaxis Assessment & Plan Assessment & Plan (1) History of excision of lamina of cervical vertebra for decompression of spinal cord: Code(s): Z98.890 - Other specified postprocedural states Category: Medical Plan Procedure: C4-6 posterior laminotomy Tamika has been doing very well since we saw her last her. She does continue to have some tingling in her bilateral hands, but states this is waxing/waning in nature. She has been doing some activities around the home, but is still restricting herself as she was unsure what she is able to do. She does still report some posterior neck pain, however feels as though this too has improved. We discussed the possibility of sending her to physical therapy, which he is agreeable to doing. I feel as though this would be very helpful for her ADLs and strength training. She asked several questions regarding postoperative healing course which I answered to the best of my ability. No new neurological deficits. The patient is able to ambulate well but is still utilizing a cane to do so. Her posterior incision site is fully healed, with no signs of edema or erythema. I will be sending Tamika for 6 weeks of physical therapy, and advised her to call the front office and make a follow-up appointment when she finishes this. Jewel Mendez MD,PhD [facility] Orders: Orders PT Evaluation and Treatment Today Z98.890 - Other specified postprocedural states Coding Level of Care Code Global (75138) Diagnoses History of excision of lamina of cervical vertebra for decompression of spinal cord Z98.890
== END 2023-11-08 10:59 | disposition home or self-care (01) ==
PROVIDERS: PCP General Practice; Visit Provider Physician Assistant
DX: Z98.890 Other specified postprocedural states (principal)
CPT/HCPCS: 99024

== ENCOUNTER → 2023-11-08 10:44 | Outpatient (BNVA) | payer OTHER, SELFPAY | PROVIDERS: PCP General Practice; Visit Provider Physician Assistant | DX: Z98.890 Other specified postprocedural states (principal) | CPT/HCPCS: 99212 ==

== ENCOUNTER 2024-05-05 15:04 | Outpatient (AMB) | payer OTHER, SELFPAY ==
--- NOTE | 2024-05-05 15:07 | HO.SPINEOV ---
Intake Visit Reasons: back and left leg pain Intake Note: Ms. Bhandari is here today c/o left leg pain. Open End Spinning Operator Required: No Allergies aspirin [ASPIRIN] Allergy (Severe, Verified 11/08/23 10:47) HIVES Penicillins [PENICILLINS] Allergy (Severe, Verified 11/08/23 10:47) HIVES shellfish derived Allergy (Severe, Verified 11/08/23 10:47) Anaphylaxis SEAFOOD Allergy (Severe, Uncoded 09/17/23 09:54) Anaphylaxis Assessment & Plan Assessment & Plan (1) Lumbar radiculopathy, chronic: Code(s): M54.16 - Radiculopathy, lumbar region Category: Medical Plan Stacy comes in today to discuss potential non-operative management of her persistent low back pain, despite implantation of SCS by Dr. Sheldon in 2020. She reports that she has had severe low back pain and shooting pain down her right leg for the past few weeks, and feels it has progressively been worsening. If note after reviewing her records it looks like she was previously treated by Dr. Levy after Dr. Sheldon for this issue via SI joint injections which provided 70-80% relief back in 2020. She has an SI joint belt which she will use intermittently and feels provides her with pretty good relief when attempting to ambulate up and down her stairs. I encouraged her to continue following up with Dr. 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 On examination today Tamika has 4/5 strength with left-sided dorsiflexion, and what I would call 4/5 strength with bilateral knee extension. The rest of her strength is 5/5 intact. No clonus. Did not attempt Gareth's due to lack of patients overall mobility. She continues to ambulate with a cane. The exam was conducted in a chair due to patients inability to ambulate onto exam table. Again, given the patient is not amenable to discussing surgical options at this time I encouraged her to continue F/U with Dr. Levy who seems to have been able to help temporize her pain in the past. Jewel Mendez MD,PhD [facility] Coding Level of Care Code Est Pt Level 3 (29272) Diagnoses Lumbar radiculopathy, chronic M54.16
== END 2024-05-05 16:31 | disposition home or self-care (01) ==
LOC: HO.HNS 15:05
PROVIDERS: PCP General Practice; Visit Provider Physician Assistant
DX: M54.16 Radiculopathy, lumbar region (principal)
CPT/HCPCS: 99213

== ENCOUNTER → 2024-05-05 15:04 | Outpatient (BNVA) | payer OTHER, SELFPAY | PROVIDERS: PCP General Practice; Visit Provider Physician Assistant | DX: M54.16 Radiculopathy, lumbar region (principal); M79.605 Pain in left leg | CPT/HCPCS: 99212 ==

== ENCOUNTER 2024-12-01 13:43 | Outpatient (REF) | payer OTHER, SELFPAY ==
[2024-12-01 17:01] LABS: Microalbum/Creatinine Ratio Ur 141.9 ug/mg cr (<30)
[2024-12-01 17:08] LABS: Alanine Aminotransferase 8 U/L (0-31); Albumin Level 4.2 g/dL (3.5-5.0); Alkaline Phosphatase 89 U/L (39-117); Anion Gap 11 (12-20); Aspartate Amino Transferase 25 U/L (5-31); Bilirubin Direct 0.2 mg/dL (0.0-0.5); Bilirubin Total 0.7 mg/dL (0.0-1.0); Blood Urea Nitrogen 10 mg/dL (9-16); Calcium 9.3 mg/dL (8.4-10.2); Carbon Dioxide 27 mmol/L (22-29); Chloride 108 mmol/L (96-108); Cholesterol 201 mg/dL (<200); Estimated Glomerular Filt Rate > 60; Glucose Random 82 mg/dL (60-115); Sodium 142 mmol/L (135-145); Total Protein 8.2 g/dL (6.5-8.0); Triglycerides 102 mg/dL (<150)
[2024-12-01 17:21] LABS: HDL Cholesterol 78 mg/dL (>40); LDL Cholesterol Calculated 103 mg/dL (<100); TSH reflex Free T4 3.26 uIU/mL (0.32-4.0); Thyroid Stimulating Hormone 3.26 uIU/mL (0.32-4.0)
[2024-12-01 18:42] LABS: Reflex LDLD? No
== END 2024-12-01 13:44 | disposition home or self-care (01) ==
LOC: HO.HHCL 13:43
PROVIDERS: Visit Provider General Practice
DX: I10 Essential (primary) hypertension (principal); E78.5 Hyperlipidemia, unspecified; E03.9 Hypothyroidism, unspecified
CPT/HCPCS: 36415; 80048; 80061; 80076; 82043; 82570; 84443

== ENCOUNTER 2025-04-02 15:50 | Outpatient (REF) | payer OTHER, SELFPAY ==
--- OUTSIDE RECORDS SUMMARY | 2025-04-02 16:52 | XMS_ITS | Encounter Summary ---
Author Organization [employer] Address [address] [place] [address] [address] [place] [address] Care Team Providers Care Television Journalist Name Role Phone Alanna Phillips MD Primary Care Provider Rekha Hussein PharmD Unavailable [phone] Encounter Details Date Type Department Care Team (Late Contact Info) Description 04/03/2023 Orders Only [facility] [address] [place] [phone] Alanna Phillips MD [address] [place] [phone] Hypothyroidism, unspecified type Social History Tobacco Use Types Packs/Day Years Used Date Smoking Tobacco: Never Smokeless Tobacco: Never Alcohol Use Standard Drinks/Week Comments Never 0 (1 standard drink = 0.6 oz pur e alcohol) Comments Unknown Sex and Gender Information Value Date Recorded Sex Assigned at Female 05/01/2022 10:14 AM EDT Legal Sex Female 10:14 AM EDT Gender Identity Female 05/01/2022 10:14 AM EDT Sexual Orientation Straight 11/27/2024 1: 09 PM EDT documented as of this encounter Plan of Treatment Upcoming Encounters Date Type Department Care Team (Late st Contact Info) Description 04/09/2025 2:00 PM EDT Medication Management [facility] [address] [place] [phone] Rekha Hussein, PharmD [address] [place] [phone] 06/19/2025 9:00 AM EST Telemedicine [facility] [address] [place] [phone] Latanya Valdes RN documented as of this encounter Procedures Procedure Name Priority Date/Time Associated Diagnosis Comments BASIC METABOLIC PANEL Routine 05/10/2023 2:42 PM EST Hypothyroidism, unspecified type documented in this encounter Results * Basic Metabolic Panel (05/10/2023 2:42 PM EST) Sodium 141 135 - 145 mmol/L [facility] Potassium 3.6 3.3 - 5.1 mmol/L [facility] Chloride 103 96 - 108 mmol/L [facility] Carbon Dioxide 29 22 - 29 mmol/L [facility] Anion Gap 13 12 - 20 [facility] Urea Nitrogen (BUN) 11 9 - 16 mg/dL [facility] Creatinine, Serum 0.81 0.5 - 1.4 mg/dL [facility] Estimated Glomerular Filt Rate >60 [facility] Comment:NOTE: For -Am erican individuals, multiply the result by 1.210.Chronic Kidney Disease: Estimated GFR < 60 mL/min/1.27o6Hyeqyd Kidney Disease: Estimated GFR < 15 mL/min/1.73m2 Glucose 86 60 - 115 mg/dL [facility] Calcium 9.6 8.4 - 10.2 mg/dL [facility] 05/10/2023 2:42 PM EST 05/10/2023 2:42 PM EST us Generic External Data Provider LAB BLOOD ORDERAB LES Final Result [facility] [address] [place] [phone] [phone] documented in this encounter Visit Diagnoses Diagnosis Hypothyroidism, unspecified type documented in this encounter Care Teams Television Journalist Relationship Specialty Start Date End Date Alanna Phillips MD [address] [place] [address] PCP - General Family Medicine 03/01/20 Rekha Hussein PharmD [address] [place] [phone] Pharmacist Internal Medicine 11/27/24 documented as of this encounter
--- OUTSIDE RECORDS SUMMARY | 2025-04-02 16:52 | XMS_ITS | Encounter Summary ---
Author Organization [employer] Address [address] [facility] [address] [place] [address] Care Team Providers Care Rover Tender Name Role Phone Alanna Phillips MD Primary Care Provider [phone] Rekha Hussein PharmD Unavailable [phone] Encounter Details Date Type Department Care Team (Late st Contact Info) Description 04/09/2024 Orders Only [facility] [address] [place], [place] [phone] Alanna Phillips MD [address] [place], [place] [phone] Neck pain (Primary Dx) Social History Tobacco Use Types Packs/Day Years Used Date Smoking Tobacco: Never Passive Smoke Exposure: Never Smokeless Tobacco: Never Alcohol Use Standard Drinks/Week Comments Never 0 (1 standard drink = 0.6 oz pur e alcohol) Depression Answer Date Recorded Patient Health Questionnaire-9 Score 0 05/02/2023 Patient Health Questionnaire-9 Score 0 05/02/2023 Last PHQ-9: Questionnaire Data Not on file 1 07/02/2022 Housing Stability Answer Date Recorded What is your housing situation today? I have wilfredo jones 12/24/[address] you li ve. Do you have problems with any of the following? Pests such as bugs, ants, or mice 12/24/2023 Food Insecurity Answer Date Recorded Within the past 12 months, y ou worried that your food would run out before you got money to buy more: Never True 05/02/2023 Within the past 12 months,th e food you bought just didn't last and you didn't have enough money to get more: Never True 07/2022 Transportation Answer Date Recorded In the past 12 months, has l ack of transportation kept you from medical appts, meetings, work or from getting things needed for daily living? No 05/02/2023 Utilities Answer Date Recorded In the past 12 months, has t he electric, gas, oil or water company threatened to shut off services in your home? No 05/02/2023 Depression Answer Date Recorded Patient Health Questionnaire-2 Score 0 05/02/2023 Internet Access Answer Date Recorded Internet Access Q1 No 03/03/2024 Internet Access Q2 I do not want or need it 08/2023 Comments Unknown Sex and Gender Information Value [...] Description 04/09/2025 2:00 PM EDT Medication Management [facility] [address] [place] [phone] Rekha Hussein PharmD [address] [place] [phone] 06/19/2025 9:00 AM EST Telemedicine [facility] [address] [place] [phone] Latanya Valdes, RN documented as of this encounter Visit Diagnoses Diagnosis Neck pain- Primary Cervicalgia documented in this encounter Additional Health Concerns Assessment Noted Time PHQ-9 Depression Total Score: 0 05/02/20 23 4:10 PM EDT documented as of this encounter Care Teams Rover Tender Relationship Specialty Start Date End Date Alanna Phillips MD [address] [place] [phone] PCP - General Family Medicine 03/01/20 Rekha Hussein PharmD [address] [place] [phone] Pharmacist Internal Medicine 11/27/24 documented as of this encounter
--- OUTSIDE RECORDS SUMMARY | 2025-04-02 16:52 | XMS_ITS | Encounter Summary ---
Author Organization [employer] Address [address] [place] [address] Care Team Providers Care Ear Machine Operator Name Role Phone Alanna Phillips MD Primary Care Provider [phone] Rekha Hussein PharmD Unavailable [phone] Encounter Details Date Type Department Care Team (Late st Contact Info) Description 02/22/2024 Orders Only [facility] [address] [place] [address] [phone] Aggie Bajwa MD [address] [place] [address] Social History Tobacco Use Types Packs/Day Years [...] Recorded Patient Health Questionnaire-2 Score 0 05/02/2023 Comments Unknown Sex and Gender Information Value [...] 04/09/2025 2:00 PM EDT Medication Management [facility] [address] [place] [phone] Rekha Hussein PharmD [address] [place] [phone] 06/19/2025 9:00 AM EST Telemedicine [facility] [address] [place] [phone] Latanya Valdes, FARHAD documented as of this encounter Visit Diagnoses Not on filedocumented in this encounter Additional Health Concerns Assessment Noted Time PHQ-9 Depression Total Score: 0 05/02/20 23 4:10 PM EDT documented as of this encounter Care Teams Ear Machine Operator Relationship Specialty Start Date End Date Alanna Phillips MD [address] [place] [phone] PCP - General Family Medicine 03/01/20 Rekha Hussein PharmD [address] [place] [address] [phone] Pharmacist Internal Medicine 11/27/24 documented as of this encounter
--- OUTSIDE RECORDS SUMMARY | 2025-04-02 16:52 | XMS_ITS | Clinical Summary ---
Author Organization [facility], Address [address] [place] [address] Phone Care Team Providers Care Air Traffic Control Supervisor Name Role Phone Oly Gallagher PROCESS IMPROVEMENT ENGINEER Primary Care Provider [phone] Allergies Active Allergy Reactions Criticality Noted Date Comments Aspirin 09/11/2019 Cyclobenzaprine Anaphylaxis High 04/02/2020 Fish Oil Anaphylaxis High 04/02/2020 Mometasone Anaphylaxis High 04/02/2020 Penicillin G Rash Low 09/11/2019 Trazodone 04/02/2020 Medications atorvastatin (LIPITOR) 20 MG tablet Take 1 tablet by mouth 1 (one) time each day Active labetalol (NORMODYNE) 200 MG tablet Take 1 tablet by mouth 2 (two) times a day 02/12/2019 Active montelukast (SINGULAIR) 10 MG tablet Take 1 tablet by mouth 1 (one) time each day Active cetirizine (ZyrTEC) 10 MG tablet Take 10 mg by mouth 1 (one) time each day Active chlorthalidone (HYGROTON) 25 MG tablet Take 25 mg by mouth 1 (one) time each day Active pregabalin (LYRICA) 100 MG capsule Take 75 mg by mouth 2 (two) times a day Active divalproex (DEPAKOTE) 250 MG EC tablet Take 250 mg by mouth 3 (three) times a day Do not crush, chew, or split. Active levothyroxine sodium (TIROSINT) 125 MCG capsule Take 125 mcg by mouth 1 (one) time each day Active lisinopril (PRINIVIL,ZESTR IL) 40 MG tablet Take 40 mg by mouth 1 (one) time each day Active oxyCODONE-aceta minophen (PERCOCET) 5-325 MG per tablet Take 1 tablet by mouth every 4 (four) hours if needed for moderate pain Active NIFEdipine XL (PROCARDIA XL) 90 MG 24 hr tablet Take 90 mg by mouth 1 (one) time each day Do not crush, chew, or split. Active Cholecalciferol (Vitamin D3) 50 MCG (1999) tablet Take by mouth Active Active Problems Problem Noted Date Diagnosed Date Nephritis 10/13/2020 Chronic kidney disease stage 2 09/11/2019 Hypertensive heart disease without congestive he art failure 09/11/2019 Resolved Problems Problem Noted Date Diagnosed Date Resolved Date Morbid obesity 10/13/2020 01/31/2021 Dyslipidemia 09/11/2019 01/31/2021 Hypothyroidism 09/11/2019 01/31/2021 Renal stone 09/11/2019 01/31/2021 Subdural intracranial hemorrhage 10/21/2017 01/31/2021 Family History Medical History Relation Comments Heart disease Father Diabetes Mother Heart disease Mother Hypertension Mother Diabetes Sibling brother Relation Status Comments Father Mother Sibling Social History Tobacco Use Types Packs/Day Years Used Date Smoking Tobacco: Never Alcohol Use Standard Drinks/Week Comments No 0 (1 standard drink = 0.6 oz pur e alcohol) Comments Unknown Sex and Gender Information Value Date Recorded Sex Assigned at Not on file Legal Sex Female 4:33 PM EST Gender Identity Not on file Sexual Orientation Not on file Last Filed Vital Signs Vital Sign Reading Time Taken Comments Blood Pressure 130/80 12/02/2018 12:00 PM EDT Pulse 74 12/02/2018 12:00 PM EDT Temperature - - Respiratory Rate 16 12/02/2018 12:00 PM EDT Oxygen Saturation - - Inhaled Oxygen Concentration - - Weight 89.8 kg (198 lb) 12/02/2018 12:00 PM EDT Height 149.9 cm (4' 11 ) 12/02/2018 12:00 PM EDT Body Mass Index 39.99 12/02/2018 12:00 PM EDT Plan of Treatment Health Maintenance Due Date Last Done Comments Breast Cancer Screening 1950 Pneumococcal Vaccine: 50+ Ye ars (1 of 2 - PCV) 1969 Colorectal Cancer Screening: Annual FOBT 12/30/1999 Colorectal Cancer Screening: Colonoscopy 12/30/1999 Colorectal Cancer Screening: Sigmoidoscopy 12/30/1999 Influenza Vaccine (#1) 2025 Hepatitis B Vaccine Aged Out No longe r eligible based on patient's age to complete this topic Insurance [facility] [place] [id number] Care Teams Air Traffic Control Supervisor Relationship Specialty Start Date End Date Oly Gallagher FNP [address] [place] [address] PCP - General Nurse Practitioner 01/27/21
--- OUTSIDE RECORDS SUMMARY | 2025-04-02 16:53 | XMS_ITS | Encounter Summary ---
Author Organization [employer] Address [address] [place] [address] Care Team Providers Care Surveyor'S Assistant Name Role Phone Alanna Phillips MD Primary Care Provider [phone] Rekha Hussein PharmD Unavailable [phone] Encounter Details Date Type Department Care Team (Late st Contact Info) Description 04/11/2023 Abstract [facility] [address] [place] [id number] Alanna Phillips MD [address] [place] [phone] Social History Tobacco Use Types Packs/Day Years [...] Description 04/09/2025 2:00 PM EDT Medication Management [facility] [address] [place] [phone] Rekha Hussein, PharmD [address] [place] [address] 06/19/2025 9:00 AM EST Telemedicine [facility] [address] [place] [phone] Keisha, Latanya, RN documented as of this encounter Visit Diagnoses Not on filedocumented in this encounter Care Teams Surveyor'S Assistant Relationship Specialty Start Date End Date Alanna Phillips MD [address] [place], [place] [phone] PCP - General Family Medicine 03/01/20 Rekha Hussein PharmD [address] [place] [address] Pharmacist Internal Medicine 11/27/24 documented as of this encounter
--- OUTSIDE RECORDS SUMMARY | 2025-04-02 16:53 | XMS_ITS | Encounter Summary ---
Author Organization [employer] Address [address] [facility] [address] [place] [address] Care Team Providers Care Edge Runner Name Role Phone Alanna Phillips MD Primary Care Provider [phone] Rekha Hussein PharmD Unavailable [phone] Encounter Details Date Type Department Care Team (Late st Contact Info) Description 04/25/2023 Abstract [facility] [address] [place] [phone] Alanna Phillips MD [address] [place] [phone] Social History Tobacco Use Types Packs/Day Years [...] Description 04/09/2025 2:00 PM EDT Medication Management [facility] [address] [place] [phone] Rekha Hussein, PharmD [address] [place] [address] 06/19/2025 9:00 AM EST Telemedicine [facility] [address] [place] [phone] Keisha, Latanya, RN documented as of this encounter Visit Diagnoses Not on filedocumented in this encounter Care Teams Edge Runner Relationship Specialty Start Date End Date Alanna Phillips MD [address] [place], [place] [phone] PCP - General Family Medicine 03/01/20 Rkeha Hussein PharmD [address] [place] [address] Pharmacist Internal Medicine 11/27/24 documented as of this encounter
--- OUTSIDE RECORDS SUMMARY | 2025-04-02 16:53 | XMS_ITS | Encounter Summary ---
Author Organization [employer] Address [address] [facility] [address] [place] [address] Care Team Providers Care Soccer Coach Name Role Phone Alanna Phillips MD Primary Care Provider [phone] Rekha Hussein PharmD Unavailable [phone] Reason for Referral * Consultation (Routine) - Pending Review Specialty Diagnoses / Procedures Referred By Contmichelle wiggins Referred To Contact Pharmacy Diagnoses Primary hypertension Alanna Phillips MD [address] [place] [address] Phone: tel: fax: Referral ID Status Reason Start Date Expiration Date Visits Requested Visits Authorized [id number] Pending Review Consult and Treat 04/24/2025 6 6 Encounter Details Date Type Department Care Team (Late st Contact Info) Description 04/24/2024 Orders Only [facility] [address] [place], [place] [phone] Alanna Phillips MD [address] [place], [place] [phone] Primary hypertension (Primary Dx) Social History Tobacco Use Types [...] your housing situation today? I have wilfredo sing 12/24/[address] you li [...] Description 04/09/2025 2:00 PM EDT Medication Management [facility] [address] [place] [phone] Rekha Hussein, AngelaD [address] [place] [phone] 06/19/2025 9:00 AM EST Telemedicine [facility] [address] [place] [phone] Latanya Valdes, FARHAD Scheduled Referrals Name Type Priority Associated Diagnoses Orde r Schedule Referral to Pharmacy CDTM Outpatient Referral Routine Primary hypertension Ordered: 04/24/2024 documented as of this encounter Visit Diagnoses Diagnosis Primary hypertension- Primary Unspecified essential hypertension documented in this encounter Additional Health Concerns Assessment Noted Time PHQ-9 Depression Total Score: 0 05/02/20 23 4:10 PM EDT documented as of this encounter Care Teams Soccer Coach Relationship Specialty Start Date End Date Alanna Phillips MD [address] [place] [address] PCP - General Family Medicine 03/01/20 Rekha Hussein PharmD [address] [place] [address] Pharmacist Internal Medicine 11/27/24 documented as of this encounter
--- OUTSIDE RECORDS SUMMARY | 2025-04-02 16:53 | XMS_ITS | Clinical Summary ---
Author Organization [employer] Address [address] [facility] [address] [place] [address] Care Team Providers Care Inspector Machine Cut Glass Name Role Phone Alanna Phillips MD Primary Care Provider [phone] Rekha Hussein PharmD Unavailable [phone] Allergies Active Allergy Reactions Criticality Noted Date Comments Aspirin 07/21/2010 Cyclobenzaprine Anaphylaxis High 11/25/2013 Other reaction(s): throat closes Fish Oil Anaphylaxis High 11/25/2013 Other reaction(s): throat closes Food 06/07/2022 Seafood /throat closese Mometasone Anaphylaxis High 11/25/2013 Other reaction(s): inhaled - throat closes. Tolerates fluticasone as of 2021 Penicillin G Rash Low 09/11/2019 Penicillins 08/26/2012 Other reaction(s): RASH Shellfish Allergy 08/28/2023 Trazodone 03/27/2011 Other reaction(s): unspecified Medications Ventolin HFA 108 (90 Base) MCG/ACT inhalerIndicatio ns:Mild intermittent asthma, uncomplicated INHALE 2 PUFFS BY MOUTH EVERY 4 HOURS NEEDED FOR WHEEZING OR SHORTNESS OF BREATH 18 g 11 025 Active naloxone (Narcan) 4 mg/0.1 mL nasal sprayIndications :Low back pain at multiple sites Administer 1 spray (4 mg) into affected nostril(s) if needed for opioid reversal. May repeat every 2-3 minutes if needed, alternating nostrils, until medical assistance becomes available. 2 each 3 025 2025 Active NIFEdipine XL (Procardia XL) 60 MG 24 hr tabletIndication s:Primary hypertension Take 2 tablets (120 mg) by mouth Once per day. Do not crush, chew, or split. 180 tablet 1 Active fluticasone (Flovent) 220 MCG/ACT inhalerIndicatio ns:Mild intermittent asthma, unspecified whether complicated Inhale 1 puff in the morning and at bedtime. Rinse mouth with water after use to reduce aftertaste and incidence of candidiasis. Do not swallow. 12 g 5 025 2025 Active Additional Information Patient taking differently:1 puff Inhalation2 times daily PRN, Rinse mouth with water after use to reduce aftertaste and incidence of candidiasis. Do not swallow., Reason: see CDTM note 12/22/24, Reported on 12/22/2024 Blood Pressure Monitoring (Omron 3 Series BP Monitor) device USE TO CHECK BLOOD PRESSURE EVERY DAY DIRECTED Active hydroCHLOROthiaz henry 12.5 MG tablet Take 1 tablet (12.5 mg) by mouth Once per day. 30 tablet 11 025 2025 Active Additional Information Patient not taking.Reason: see CDTM note 12/22/24, will start today, Reported on 12/22/2024 atorvastatin (Lipitor) 80 MG tablet Take 1 tablet (80 mg) by mouth Once per day. 90 tablet 1 Active lisinopril 40 MG tablet TAKE 1 TABLET BY MOUTH EVERY MORNING 90 tablet 3 Active levothyroxine (Synthroid, Levoxyl) 125 MCG tabletIndication s:Hypothyroidism , unspecified type TAKE 1 TABLET BY MOUTH EVERY MORNING 90 tablet 3 Active oxyCODONE-acetam inophen (Percocet) 5-325 MG tabletIndication s:Low back pain at multiple sites Take 1 tablet by mouth if needed each day for severe pain for up to 28 days. Do not start before March 31, 2025. 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 Choledocholithiasis 01/19/2024 Overview (01/19/2024): S/p stent and subsequent cholecystectomy 12/2023 [facility] [place] infection of flexural skin 01/19/2024 Assessment & Plan (01/19/2024 4:11 PM EDT): Nystatin powder BID Keep area dry and cool Hospital discharge follow-up 01/19/2024 Assessment & Plan (01/19/2024 4:14 PM EDT): Medications reconciled and followup plans with surgery/GI ensured - pt will restart medboxes after upcoming appointment with MTM Pneumonia due to infectious organism 06/19/2023 Assessment & Plan (07/23/2023 12:51 PM EST): Still with shortness of breath O2 sats 100% Will image to ensure resoluation of PNA Assessment & Plan (06/19/2023 11:58 AM EST): Seems to be resolved, completed antibiotics Hypokalemia 06/19/2023 Assessment & Plan (06/19/2023 11:59 AM EST): Check BMP and FU result Delirium 06/19/2022 Overview (06/19/2022): Will recheck labs (TSH, depakote, CMP, CBC) Stat consult to [facility] Consider starting low-dose Zyprexa, in consultation with psychiatry Assessment & Plan (05/25/2024 4:36 PM EST): Largely resolved with time Disease due to severe acute respiratory syndrome coronavirus 2 (SARS-CoV-2) 06/05/2022 06/04/2023 Overview (06/04/2023): Problem added by Discern Expert Esophageal dysmotility 01/04/2022 Hypertensive nephrosclerosis 09/06/2021 Neck pain 01/05/2021 Assessment & Plan (01/19/2024 4:10 PM EDT): S/p C3-6 posterior laminectomy to help stop progression myelopathy at [facility] with Dr Mendez (10/2023) Resume once daily Percocet 5/325 if pain is severe Bowel regimen while taking Percocet F/u with NSG after cleared from GI point of view, abdominal pain subsides Nephritis 10/13/2020 Hypertensive heart disease without congestive he art failure 09/11/2019 Stage 2 chronic kidney disease 09/11/2019 Subdural hemorrhage (CMS/HCC) 10/21/2017 Allergic rhinitis 12/10/2012 Asthma 02/20/2012 Assessment & Plan (06/19/2023 11:58 AM EST): Needs to restart fluticasone/salmeterol BID, should wash her mouth after each application Use albuterol prn only FU PCP next month Low back pain at multiple sites 02/20/2012 Assessment & Plan (12/10/2024 10:17 AM EDT): To see NSG about PRABHA at soonest available Can use Percocet sparingly up to daily prn Stretching, heat, and distracting activities as part of therapy as well She is welcome in acupuncture and chronic pain group visits as well Assessment & Plan (05/25/2024 4:38 PM EST): To see NSG about PRABHA at soonest available Can use Percocet sparingly in the meantime as she waits for that appointment Assessment & Plan (07/23/2023 12:54 PM EST): Take Lyrica 100mg BID 1 tablet 5/325 Percocet sparingly prn, Diclofenac gel No signs of cauda equina Explained that goal is alleviate current pain while getting BP under control for possible further pain intervention (replacement or removal of SPRINT device) Explained that lying in bed all the time is not helpful for her pain To move a little bit, as tolerated Watch for worsening confusion or sedation with opioids Assessment & Plan (06/04/2023 12:41 PM EST): Take Lyrica 100mg BID Add Percocet sparingly prn, Diclofenac gel No signs of cauda equina Explained that goal is alleviate current pain while getting BP under control for possible further pain intervention (replacement or removal of SPRINT device) Explained that lying in bed all the time is not helpful for her pain To move a little bit, as tolerated Also to watch for worsening confusion or sedation with opioids Assessment & Plan (05/03/2023 11:26 AM EDT): Take Lyrica 100mg BID Add Percocet BID, Diclofenac gel No signs of cauda equina Explained that goal is alleviate current pain while getting BP under control for possible further pain intervention (replacement or removal of SPRINT device) Explained that lying in bed all the time is not helpful for her pain To move a little bit, as tolerated Also to watch for worsening confusion or sedation with opioids Depressive disorder 02/20/2012 Dyslipidemia 02/20/2012 Hypertension 02/20/2012 Assessment & Plan (05/25/2024 4:36 PM EST): Continue Lisinopril 40mg daily and Nifedipine 60mg daily - recommend that someone in the family check her med box at the end of each day - asymptomatic of BP today - some element of white coat hypertension due to difference in measurements with VNA and in clinic - consider increasing Nifedipine to 90mg daily at next visit - saw cardiology 08/2023 at [facility], Echo with EF 65-70% and mild LVH and normal myocardial perfusion stress test Assessment & Plan (01/19/2024 4:14 PM EDT): Continue Lisinopril 40mg daily and Nifedipine 60mg daily - recommend that someone in the family check her med box at the end of each day - asymptomatic of BP today - some element of white coat hypertension due to difference in measurements with VNA and in clinic - consider increasing Nifedipine to 90mg daily at next visit - saw cardiology 08/2023 at [facility], Echo with EF 65-70% and mildLVH and normal myocardial perfusion stress test Assessment & Plan (07/23/2023 12:55 PM EST): Continue hydrochlorothiazide 12.5mg, Lisinopril to 40mg daily, and Nifedipine to 60mg daily - recommend that someone in the family check her med box at the end of each day - declines ER for BP 202/100 and 184/94, asymptomatic - declines nephro or cardiology consult today - f/u in 2-4 weeks Assessment & Plan (06/19/2023 11:58 AM EST): Uncontrolled, repeated was 160/100, Pt is asymptomatic Discussed w/ her the importance of asthma control No change in medications and FU w/ PCP in 1 m Assessment & Plan (06/04/2023 12:41 PM EST): Continue hydrochlorothiazide 12.5mg, continue Lisinopril to 40mg daily INCREASE Nifedipine to 60mg daily - recommend that someone in the family check her med box at the end of each day - declines ER for BP 213/120, asymptomatic - declines nephro or cardiology consult today - f/u in 2-4 weeks Assessment & Plan (05/03/2023 11:19 AM EDT): Unclear whether pt has resistant HTN or some component of secondary hypertension as her med adherence is not objectively known - add hydrochlorothiazide 12.5mg back, increase Lisinopril to 40mg daily, continue Nifedipine 30mg - recommend that someone in the family check her med box at the end of each day - declines ER for BP 210/100, asymptomatic - declines nephro consult today - f/u in 2-4 weeks Hypothyroidism 02/20/2012 Migraine 02/20/2012 Encounters Date Type Department Care Team Description 03/27/2025 Telephone [facility] [address] [place] [phone] Alanna Phillips MD Appointment Request 03/25/2025 9:30 AM EDT Telemedicine [facility] [address] [place] [address] Latanya Valdes RN 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 03/25/2025 Refill [facility] [address] [place] [address] Latanya Valdes RN Low back pain at multiple sites 03/25/2025 Travel 03/06/2025 Refill [facility] [address] [place] [address] Alanna Phillips MD Low back pain at multiple sites 01/28/2025 Refill [facility] [address] [place] [address] Alanna Phillips MD Hypothyroidism, unspecified type 01/26/2025 Refill [facility] [address] [place] [address] Aggie Bajwa MD Low back pain at multiple sites 01/16/2025 Telephone [facility] [address] [place] [address] Rekha Hussein, PharmD 12/31/2024 Refill [facility] [address] [place] [address] Alanna Phillips MD Low back pain at multiple sites 12/31/2024 Refill [facility] [address] [place] [address] Alanna Phillips MD Low back pain at multiple sites from Last 3 Months Immunizations Immunization Administration Dates Next Due Influenza High-dose Quadriva lent Preservative Free 06/01/2023,04/07/2020 Influenza injectable quadriv alent IIV4 with preservative 06/21/2017,05/03/2016,08/02/2015 Influenza injectable quadriv alent preservative free 09/05/2021,04/02/2019 Influenza, High Dose Seasona l, Preservative Free 03/27/2024 Influenza, IIV3, injectable 04/21/2014, 1 Influenza, Split (incl. amauri fied surface antigen) 04/26/2012 Moderna Covid-19 Vaccine 12+ 09/05/2021,11/21/19 21,10/23/2020 Pfizer Covid-19 Vaccine 12+ 03/27/2024 Pneumococcal Conjugate PCV 13 05/03/2016 Pneumococcal Conjugate PCV 20 05/23/2024 Pneumococcal Polysaccharide PPSV23 08/07/2006 RSV Bivalent 03/27/2024 TD (adult), 2 Lf tetanus tox oid, preservative free, adsorbed 06/05/1997 Tdap 11/27/2024,04/26/2012 Zoster, Recombinant 01/09/2022,11/07/2021 Zoster, live 08/02/2015 Social History Tobacco Use Types Packs/Day Years Used Date Smoking Tobacco: Never Passive Smoke Exposure: Never Smokeless Tobacco: Never Tobacco Cessation:Counseling Given: Not Answered Alcohol Use Standard Drinks/Week Comments Never 0 (1 standard drink = 0.6 oz pur e alcohol) Depression Answer Date Recorded Patient Health Questionnaire-9 Score 0 05/23/2024 Patient Health Questionnaire-9 Score 0 05/23/2024 Last PHQ-9: Questionnaire Data Not on file 1 07/23/2023 Housing Stability Answer Date Recorded What is your housing situation today? I have wilfredo jones 05/23/[address] you li ve. Do you have problems with any of the following? None of the above 05/23/2024 Food Insecurity Answer Date Recorded Within the [...] Date Recorded Patient Health Questionnaire-2 Score 0 05/23/2024 Internet Access Answer Date Recorded Internet Access Q1 Yes 12/31/2024 Internet Access Q2 Not on file 12/31/2024 Comments Unknown Sex and Gender Information Value Date Recorded Sex Assigned at Female 05/01/2022 10:14 AM EDT Legal Sex Female 10:14 AM EDT Gender Identity Female 05/01/2022 10:14 AM EDT Sexual Orientation Straight 11/27/2024 1: 09 PM EDT Last Filed Vital Signs Vital Sign Reading Time Taken Comments Blood Pressure 160/98 12/22/2024 10:09 AM EDT Pulse 90 12/08/2024 3:43 PM EDT Temperature 37.1 C (98.7 F) 12/08/2024 3:43 PM EDT Respiratory Rate 18 12/08/2024 3:43 PM EDT Oxygen Saturation 97% 05/23/2024 9:06 AM EST Inhaled Oxygen Concentration - - Weight 81.6 kg (180 lb) 12/08/2024 3:43 PM EDT Height 149.9 cm (4' 11 ) 12/08/2024 3:43 PM EDT Body Mass Index 36.36 12/08/2024 3:43 PM EDT Plan of Treatment Upcoming Encounters Date Type Department Care Team (Late st Contact Info) Description 04/09/2025 2:00 PM EDT Medication Management [facility] [address] [place] [phone] Rekha Hussein, PharmD [address] [place] [address] 06/19/2025 9:00 AM EST Telemedicine [address] [phone] Latanya Valdes, RN Health Maintenance Due Date Last Done Comments CT Colonography 1950 FIT DNA/Cologuard 1950 FIT 1950 FOBT 1950 Sigmoidoscopy 1950 Alcohol/Substance Use Screening 1962 Hepatitis C Screening 1968 Mammogram 10/26/2022 10/26/2020 COVID-19 Vaccine (5 - Moderna risk season) 2025 03/27/2024, 09/05/2021, 11/20/2020, Additional history exists Influenza Vaccine (#1) 2025 , 06/01/2023, 09/05/2021, Additional history exists Depression Screening 05/23/2025 05/23/2024, 11/22/20 24 SDOH Screening 11/28/2025 11/28/2024 Tobacco Screening 12/10/2025 12/10/2024 Lipid Panel 12/01/2029 12/01/2024 Colonoscopy 03/10/2034 03/10/2024 Colorectal Cancer Screening 03/10/2034 DTaP/Tdap/Td Vaccines (3 - Td or Tdap) 11/27/2034 11/27/2024, 04/26/2012, 06/05/1997 Zoster Vaccines Completed 01/09/2022, 050 03/2022, 08/02/2015 RSV Patients and Patients Aged 60 years or older Completed 03/27/2024 Pneumococcal Vaccine: 50+ Years Completed 05/23/2024, 05/03/2016, 08/07/2006 HIB Vaccines Aged Out No longer eligi ble based on patient's age to complete this topic HPV Vaccines Aged Out No longer eligi ble based on patient's age to complete this topic Hepatitis A Vaccines Aged Out No long er eligible based on patient's age to complete this topic Hepatitis B Vaccines Aged Out No long er eligible based on patient's age to complete this topic IPV Vaccines Aged Out No longer eligi ble based on patient's age to complete this topic Meningococcal B Vaccine Aged Out No l onger eligible based on patient's age to complete this topic Meningococcal Vaccine Aged Out No moncho desi eligible based on patient's age to complete this topic RSV under 20 months Aged Out No longe r eligible based on patient's age to complete this topic Rotavirus Vaccines Aged Out No longer eligible based on patient's age to complete this topic Procedures Procedure Name Priority Date/Time Associated Diagnosis Comments LIPID PANEL, STANDARD Routine 12/01/2024 1:44 PM EDT HM COLONOSCOPY Routine 03/10/2024 MAMMOGRAM GENERIC Routine 10/26/2020 4:0 0 PM EDT from Last 3 Months or Most Recently Relevant to Health Maintenance Results * (ABNORMAL) Lipid Panel, Standard (12/01/2024 1:44 PM EDT) Triglycerides 102 <150 mg/dL [facility] Comment:Desirable Triglyceri de: less than 150 mg/dLBorderline High Triglyceride 150-199 mg/dLHigh Triglyceride: 200-499 mg/dLVery High Triglyceride: greater than or equal to 5OO mg/dL Cholesterol 201(H) <200 mg/dL [facility] Comment:Desirable Cholestero l: less than 200 mg/dLBorderline High Cholesterol: 200-239 mg/dLHigh Cholesterol: greater than 239 mg/dL LDL Cholesterol Calculated 103(H) <100 mg/dL [facility] Comment:Desirable LDL: less than 100 mg/dLNear Optimal/Above Optimal LDL: 110- 129 mg/dLBorderline High LDL: 130-159 mg/dLHigh LDL: 160-189 mg/dLVery High LDL: greater than or equal to 190 mg/dL HDL Cholesterol 78 >40 mg/dL [facility] Comment:Desirable HDL: great er than 40 mg/dL Note: This HDL assay may give artificially low results in patients with liver disease. 12/01/2024 1:44 PM EDT 12/01/2024 4:00 PM EDT Alanna Phillips MD LAB BLOOD ORDERABLES Final Res ult [facility] [address] [place] [address] [phone] * Colonoscopy (03/10/2024) Colonoscopy Normal Normal Narrative Jaki Hansen - 03/10/2024 Fragments of tubular adenomas Historical Provider HEALTH MAINTENANCE Final Result * Mammography Report 1 (10/26/2020 4:00 PM EDT) Anatomical Region Laterality Modality Breast Bilateral Mammography 10/26/2020 4:00 PM EDT Narrative 10/27/2020 11:44 AM EDT Refer to the Notes tab for result details [facility] Procedure: Mammography Report 1 Procedure Note ProviderNae MD - 09/23/2022 Refer to the Notes tab for result details [facility] Procedure: Mammography Report 1 Alanna Phillips MD IMG BI PROCEDURES Final Result from Last 3 Months or Most Recently Relevant to Health Maintenance Insurance [facility] [employer] (HMO D-SNP) [facility] STANDARD Care Teams Inspector Machine Cut Glass Relationship Specialty Start Date End Date Alanna Phillips MD [address] [place] [phone] PCP - General Family Medicine 03/01/20 Rekha Hussein PharmD [address] [place] [phone] Pharmacist Internal Medicine 11/27/24
[2025-04-02 18:04] LABS: Alanine Aminotransferase 10 U/L (0-31); Albumin Level 4.2 g/dL (3.5-5.0); Alkaline Phosphatase 93 U/L (39-117); Anion Gap 14 (12-20); Aspartate Amino Transferase 25 U/L (5-31); Blood Urea Nitrogen 15 mg/dL (9-16); Calcium 9.0 mg/dL (8.4-10.2); Carbon Dioxide 25 mmol/L (22-29); Chloride 108 mmol/L (96-108); Estimated Glomerular Filt Rate > 60; Potassium 3.6 mmol/L (3.3-5.1); Sodium 143 mmol/L (135-145); Total Protein 8.0 g/dL (6.5-8.0)
== END 2025-04-02 15:51 | disposition home or self-care (01) ==
LOC: HO.HHCL 15:50
PROVIDERS: PCP General Practice; Visit Provider General Practice
DX: E78.5 Hyperlipidemia, unspecified (principal); I10 Essential (primary) hypertension; E87.6 Hypokalemia
CPT/HCPCS: 36415; 80048; 80076

== ENCOUNTER 2025-05-19 14:12 | Outpatient (AMB) | payer OTHER, MEDICARE, SELFPAY ==
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
[2025-05-19 14:19] VITALS: BP 232/109; PULSE 70; O2SAT 97; BMI 36.2
[2025-05-19 14:41] VITALS: BP 242/105
[2025-05-19 14:44] VITALS: BP 202/100
[2025-05-19 14:53] VITALS: BP 196/86; PULSE 64; RESP 16
--- OUTSIDE RECORDS SUMMARY | 2025-05-20 09:46 | XMS_ITS | Data Portability ---
Author Organization [employer] [facility], [facility] [employer] [facility] Address [address] [place] [address] Assessment Encounter Date Assessment Date Assessment LastModified by Organization Details LastModified Time 07/02/2023 07/02/2023 Ms. Tamika Bhandari is a 72yoF w/ a Pmhx of HTN who is seen today for further evaluation of COVID-19. Ms. Bhandari reports that for the past one week she has had a dry, non-productive cough and myalgias. For the past few days she has also had nausea, vomiting, and diarrhea. She was unable to take her blood pressure medications this morning. She endorses a bifrontal headache that has been present over the day. Vital signs with hypertension, mild tachycardia. Telephone Coin Box Collector on site reports no acute distress. POC labs with mild hyperkalemia at 5.6. Given 1L NS, 4mg IV zofran, and 10mg IV reglan for headache/nausea control. She was able to take her blood pressure medication and her BP improved to 160SBP making hypertensive emergency an unlikely cause of her symptoms. Not a paxlovid candidate given duration of symptoms and encouraged ongoing fluids/rest/sup portive care. Zofran ODT sent to pharmacy for symptom control. Primary team, Ms. Bhandari would benefit from follow up in the next week or so to make sure she's improving and to recheck her potassium. [email or web address] Not available 07/02/2023 16:14:33 Plan of Treatment Reminders Order Date Submit Date Provider Last Modified By Organization Details Last Modified Time Details Appointments None recorded. Lab None recorded. Referral None recorded. Procedures None recorded. Surgeries None recorded. Imaging None recorded. Medication Orders ondansetron 4 mg disintegrat ing tablet 2023 024 [id number], [phone] [place], [address], 4 15:05:28 Patient TargetsNo targets recorded. Patient InstructionsNo instructions recorded. Reason for Referral None Reported. Medical Equipment None Reported. Allergies Allergen ID Allergen Name Allergen Category Reaction Reaction Severity Criticality Documentation Date Start Date Code Code System Note Provider Name and Address Organization Details Recorded Time 8113 Product containin g penicilli n (product) medicatio n Not available Not available Not available 04/29/2024 36404 8001 SNOMED Not Available [facility] - production 4 03:42:02 Medications Name Sig Start Date Stop Date Status Note LastModified by Organization Details LastModified Time nifedipine ER 30 mg tablet,extend ed release 24 hr TAKE 1 TABLET BY MOUTH EVERY MORNING DO NOT BREAK, CRUSH, DISSOLVE OR CHEW active Not Available Not Available No t Available fluticasone 250 mcg-salmetero l 50 mcg/dose blistr powdr for inhalation INHALE 1 PUFF TWICE DAILY. RINSE MOUTH AFTER USING. active Not Available Not Available No t Available atorvastatin 20 mg tablet TAKE 1 TABLET BY MOUTH DAILY IN THE MORNING active Not Available Not Available No t Available labetalol 200 mg tablet TAKE 1 TABLET BY MOUTH TWICE DAILY active Not Available Not Available No t Available cefpodoxime 200 mg tablet TAKE 1 TABLET BY MOUTH EVERY 12 HOURS UNTIL FINISHED active Not Available Not Available No t Available prochlorperaz ine maleate 5 mg tablet TAKE 1 TABLET BY MOUTH THREE TIMES A DAY NEEDED FOR NAUSEA AND VOMITING active Not Available Not Available No t Available lisinopril 20 mg tablet TAKE 1 TABLET BY MOUTH EVERY DAY IN THE MORNING active Not Available Not Available No t Available hydralazine 25 mg tablet TAKE 1 TABLET BY MOUTH THREE TIMES DAILY IN THE MORNING, AT NOON, AND IN THE EVENING WITH FOOD active Not Available Not Available No t Available acetaminophen 500 mg tablet TAKE 1 TABLET BY MOUTH EVERY 8 HOURS NEEDED FOR MILD PAIN FOR UP TO 10 DAYS active Not Available Not Available No t Available oxycodone-manisha taminophen 5 mg-325 mg tablet TAKE 1 TABLET BY MOUTH EVERY TWELVE HOURS NEEDED FOR SEVERE PAIN FOR UP TO 15 DAYS active Not Available Not Available No t Available nifedipine ER 60 mg tablet,extend ed release 24 hr TAKE 1 TABLET BY MOUTH EVERY MORNING active Not Available Not Available No t Available nifedipine ER 90 mg tablet,extend ed release 24 hr TAKE 1 TABLET BY MOUTH EVERY EVENING active Not Available Not Available No t Available levothyroxine 125 mcg tablet TAKE 1 TABLET BY MOUTH DAILY IN THE MORNING active Not Available Not Available No t Available montelukast 10 mg tablet TAKE 1 TABLET BY MOUTH AT BEDTIME active Not Available Not Available No t Available lisinopril 40 mg tablet TAKE 1 TABLET BY MOUTH EVERY MORNING active Not Available Not Available No t Available ondansetron 4 [address] disintegr[address] g tablet PLACE AND DISSOLVE 1 TABLET EVERY 6-8 HOURS NEEDED FOR NAUSEA FOR 4 DAYS. active Not Available Not Available No t Available doxycycline hyclate 100 mg tablet TAKE 1 TABLET BY MOUTH TWO TIMES A DAY active Not Available Not Available No t Available Ventolin HFA 90 mcg/actuation aerosol inhaler INHALE 2 PUFFS BY MOUTH EVERY 4 HOURS NEEDED FOR WHEEZING OR SHORTNESS OF BREATH active Not Available Not Available No t Available Oyster Shell Calcium-Vitam in D3 500 mg-5 mcg (200 unit) tablet TAKE 1 TABLET BY MOUTH EVERY MORNING active Not Available Not Available No t Available divalproex ER 250 mg tablet,extend ed release 24 hr TAKE 2 TABLETS BY MOUTH EVERY MORNING active Not Available Not Available No t Available hydrochloroth iazide 12.5 mg tablet TAKE 1 TABLET BY MOUTH EVERY MORNING active Not Available Not Available No t Available diclofenac 1 % topical gel APPLY 2g TOPICALLY TO THE AFFECTED AREA(S) TWICE DAILY active Not Available Not Available No t Available Vitals Date Recorded Heart rate Body height Body weight Oxygen saturation Oxygen saturation in Arterial blood by Pulse oximetry Body temperature Respiratory rate Systolic And Diastolic Provider Name and Address Organization Details Last Updated DateTime 4 108 /min 149.86 cm 82390.4 8 g 99 % 99 % 98.1 [degF] 16 /min 199/109 mm[Hg] Not Available [facility] - production 4 15:01:50 Social History None recorded. Functional Status None recorded. Mental Status None recorded. Family History Nothing Reported. Medical History No medical history recorded. Gynecological HistoryNo gynecological history recorded. Obstetrics History GPAL:G 0 P 0 0 0 0 Past Encounters Encounter ID Performer Location Encounter Start Date Encounter Closed Date Diagnosis/Indication Diagnosis SNOMED-CT Code Diagnosis ICD10 Code Diagnosis IMO Codes Diagnosis Note [id number] Smitha Mehta MD [facility] [address] [place] [address] 07/02/2023 15:01:40 07/03/2023 12:52:17 Nausea, vomiting and diarrhea 3378249 R11.2 Health Concerns Section Related Observation LastModified by Organization Detai ls LastModified Time None Recorded Concern Status LastModified by Organization Details LastModified Time None Recorded Advance Directives Directive None Recorded Payers Insurance Date Sequence Insurance Name Policy Number Policy Sotelo Covered Member ID Sotelo Member ID Guarantor Name 07/02/2023 1 [facility] - DOS ON OR AFTER 2022 - DUAL ELIGIBLE - [employer] AND [employer] (MEDICARE REPLACEMENT/AD VANTAGE - HMO) Tamika Bhandari [id number] Tamika Bhandari Notes Date Note Type Note Provider Name and Address Organization Details Recorded Time 07/02/2023 text/html [facility] Nurse Triage Notes (Oly Olmstead): Chief Complaints: Cough PMH: Hypertension Allergies: Penicillin Comments: Tested positive for Covid 2 days ago. Symptoms are not improving. + chills, cough, headache. Shortness of breath with coughing .................. .................. .................. .................. .................. .................. .................. ............... Telephone Coin Box Collector Note From Buck Escobar: Pt reports dry cough and CONRAD for one week, n/v/d since Sunday and tested covid positive on Sunday. Pt denies CP, SOB, LIMA, fevers/chills. Pt is alert, NAD. Hypertensive and tachycardic. Afebrile. Non focal neuro exam. Normal gait. Lungs CTA. Benign ABD exam. No LE edema. POC labs uploaded. Rapid flu negative, covid positive. Pt treated with normal saline 1 L IV, ondansetron 4 mg IVP and metoclopramide 10 mg IVP. VS normalized post fluid administration. Pt educated on supportive care measures and to stay well hydrated. Pt instructed to seek emergent medical care for new or worsening sx, which are reviewed with her and her son. .................. .................. .................. .................. .................. .................. .................. ............... Disposition: Fulfilled Smitha Mehta MD [address] [place] [address],[address] [facility], [place], [address], [facility] 07/02/2023 16:14:36 OBGyn Episode No OBEpisode recorded.
--- OUTSIDE RECORDS SUMMARY | 2025-05-20 09:48 | XMS_ITS | Clinical Summary ---
Author Organization [facility], Address [address] [place] [address] Phone Care Team Providers Care Packer And Carry Out Name Role Phone Oly Gallagher TOBACCO HANGER Primary Care Provider [phone] Allergies Active Allergy Reactions Criticality Noted Date [...] patient's age to complete this topic Insurance [facility] [place] [id number] Care Teams Packer And Carry Out Relationship Specialty Start Date End Date Oly Gallagher FNP [address] [place] [address] PCP - General Nurse Practitioner 01/27/21
== END 2025-05-19 15:07 | disposition home or self-care (01) ==
PROVIDERS: PCP General Practice; Visit Provider Nurse Practitioner Family
DX: M79.2 Neuralgia and neuritis, unspecified (principal); M65.331 Trigger finger, right middle finger; M79.641 Pain in right hand; M79.642 Pain in left hand; M96.1 Postlaminectomy syndrome, not elsewhere classified; M54.16 Radiculopathy, lumbar region; M46.1 Sacroiliitis, not elsewhere classified; G89.4 Chronic pain syndrome; M53.3 Sacrococcygeal disorders, not elsewhere classified; G89.29 Other chronic pain; M47.817 Spondylosis without myelopathy or radiculopathy, lumbosacral region
CPT/HCPCS: 99214; G2211

== ENCOUNTER → 2025-05-19 14:12 | Outpatient (BNVA) | payer OTHER, SELFPAY | PROVIDERS: PCP General Practice; Visit Provider Nurse Practitioner Family | DX: G89.4 Chronic pain syndrome (principal); M79.641 Pain in right hand; M65.331 Trigger finger, right middle finger; M96.1 Postlaminectomy syndrome, not elsewhere classified; M54.16 Radiculopathy, lumbar region; M46.1 Sacroiliitis, not elsewhere classified; M53.3 Sacrococcygeal disorders, not elsewhere classified; M47.817 Spondylosis without myelopathy or radiculopathy, lumbosacral region | CPT/HCPCS: 99212 ==